=== PATIENT | female | born 1955 | race Caucasian/White ===

== ENCOUNTER → 2021-01-21 07:36 | Outpatient (CLI) | payer MEDICARE, MEDICAID, SELFPAY ==
[2021-01-21 14:18] LABS: Chloride 99 mmol/L (98-107); Potassium 4.8 mmoL/L (3.5-5.1); Sodium 132 mmol/L (136-145)
[2021-01-21 14:20] LABS: Alanine Aminotransferase 39 U/L (12-78); Alkaline Phosphatase 134 U/L (38-126); Aspartate Amino Transferase 33 U/L (14-36); Bilirubin,Total 0.6 mg/dl (0.2-1.3); Blood Urea Nitrogen 38 mg/dl (7-17); Estimated Glomerular Filt Rate 56 ml/min (>60); GFR (African American) 67 ML/MIN (>60)
[2021-01-21 14:21] LABS: Albumin Level 2.9 g/dl (3.5-5.0); Albumin/Globulin Ratio 1.1 (1.1-1.8); Anion Gap 6.8 mEq/L (5-15); Calcium 8.8 mg/dl (8.4-10.2); Carbon Dioxide 31 mmol/L (22.0-30.0); Chol/HDL Ratio 2.2 (1-3.5); Cholesterol 84 mg/dl (140-200); Globulin 2.7 g/dL (1.3-3.2); Glucose 313 mg/dl (74-100); HDL Cholesterol 39 mg/dl (40-60); Total Protein,Serum 5.6 g/dl (6.3-8.2); Triglycerides 83 mg/dl (30-150); VLDL Cholesterol 17 mg/dL (0-40)
[2021-01-21 14:35] LABS: Basophils % 0.5 % (0.1-2.0); Direct LDL Cholesterol < 30.00 mg/dL (100-129); Eosinophils # 0.3 K/mm3 (0.0-0.4); Eosinophils % 3.6 % (0.1-12.0); Hematocrit 37.7 % (37.0-47.0); Hemoglobin 12.5 g/dL (12.2-16.2); Lymphocytes % 25.4 % (10-50); Mean Corpuscular HGB Conc 33.1 g/dL (31.8-35.4); Mean Corpuscular Hemoglobin 29.7 pg (27.0-31.2); Mean Corpuscular Volume 89.8 fl (81-99); Mean Platelet Volume 9.1 fl (7.4-10.4); Monocytes # 0.6 K/mm3 (0.1-1.0); Monocytes % 7.3 % (1.7-9.3); Neutrophils # 4.9 K/mm3 (1.8-7.8); Neutrophils % 63.1 % (37.0-80.0); Platelet Count 119 K/mm3 (142-424); Red Cell Distribution Width 13.3 % (11.5-17.5); White Blood Count 7.8 K/mm3 (4.8-10.8)
[2021-01-21 14:52] LABS: Thyroid Stimulating Hormone 3.11 uIU/mL (0.465-4.68)
[2021-01-21 16:01] LABS: Hemoglobin A1C 9.8 % (4.0-6.0)
== END ==
PROVIDERS: Visit Provider Internal Medicine Adolescent Medicine
DX: E11.40 Type 2 diabetes mellitus with diabetic neuropathy, unspecified (principal); E03.9 Hypothyroidism, unspecified; E78.5 Hyperlipidemia, unspecified; I10 Essential (primary) hypertension; Z79.4 Long term (current) use of insulin
CPT/HCPCS: 36415; 80053; 80061; 83036; 84443; 85025

== ENCOUNTER → 2021-01-23 07:40 | Outpatient (CLI) | payer MEDICARE, MEDICAID, SELFPAY ==
[2021-01-23 13:44] LABS: Basophils # 0.1 K/mm3 (0-0.2); Basophils % 0.6 % (0.1-2.0); Eosinophils # 0.3 K/mm3 (0.0-0.4); Eosinophils % 1.9 % (0.1-12.0); Hematocrit 38.4 % (37.0-47.0); Hemoglobin 12.7 g/dL (12.2-16.2); Lymphocytes # 3.7 K/mm3 (0.7-4.5); Lymphocytes % 22.2 % (10-50); MANUAL DIFFERENTIAL MANUAL DIFFERENTIAL (MANUAL DIFF); Mean Corpuscular HGB Conc 33.1 g/dL (31.8-35.4); Mean Corpuscular Hemoglobin 29.6 pg (27.0-31.2); Mean Corpuscular Volume 89.3 fl (81-99); Mean Platelet Volume 8.9 fl (7.4-10.4); Monocytes # 0.9 K/mm3 (0.1-1.0); Monocytes % 5.2 % (1.7-9.3); Neutrophils # 11.7 K/mm3 (1.8-7.8); Neutrophils % 70.1 % (37.0-80.0); Platelet Count 170 K/mm3 (142-424); Red Cell Distribution Width 13.5 % (11.5-17.5); White Blood Count 16.6 K/mm3 (4.8-10.8)
[2021-01-23 13:53] LABS: Alanine Aminotransferase 36 U/L (12-78); Albumin Level 3.1 g/dl (3.5-5.0); Albumin/Globulin Ratio 1.1 (1.1-1.8); Alkaline Phosphatase 148 U/L (38-126); Anion Gap 8.5 mEq/L (5-15); Aspartate Amino Transferase 39 U/L (14-36); Bilirubin,Total 0.5 mg/dl (0.2-1.3); Blood Urea Nitrogen 47 mg/dl (7-17); Calcium 9.2 mg/dl (8.4-10.2); Carbon Dioxide 27 mmol/L (22.0-30.0); Chloride 100 mmol/L (98-107); Estimated Glomerular Filt Rate 50 ml/min (>60); GFR (African American) 60 ML/MIN (>60); Globulin 2.8 g/dL (1.3-3.2); Glucose 130 mg/dl (74-100); Potassium 4.5 mmoL/L (3.5-5.1); Sodium 131 mmol/L (136-145); Total Protein,Serum 5.9 g/dl (6.3-8.2)
[2021-01-23 14:49] LABS: INR 1.01 (0.9-1.1); Prothrombin Time 11.9 seconds (10.1-12.5)
[2021-01-23 14:51] LABS: Eosinophils % 1 % (0-3); Lymphocytes % 25 % (10-50); Monocytes % 8 % (2-9); Neutrophils % 66 % (42-76); Platelet Estimate Normal; RBC Morphology Normal; Total Cells Counted 100
[2021-01-25 08:59] LABS: HIV Screen 4th Generation wRfx Non Reactive (Non Reactive)
[2021-01-25 09:12] LABS: Hep B Core Ab, Total Negative (Negative); Hepatitis B Surface Antigen Negative (Negative)
[2021-01-25 17:14] LABS: AFP, Tumor Marker 7.7 ng/mL (0.0-8.3); Hep A Ab, IgM Negative (Negative); Hep B Surface Ab, Qual Non Reactive (.); Hepatitis C Antibody >11.0 s/co ratio (0.0-0.9)
== END ==
PROVIDERS: Visit Provider Internal Medicine Adolescent Medicine
DX: E11.40 Type 2 diabetes mellitus with diabetic neuropathy, unspecified (principal); K74.69 Other cirrhosis of liver; B17.10 Acute hepatitis C without hepatic coma; Z79.4 Long term (current) use of insulin; Z11.4 Encounter for screening for human immunodeficiency virus [HIV]
CPT/HCPCS: 36415; 80053; 82105; 85007; 85025; 85610; 86703; 86704; 86706; 86708; 87340; 87380; 87522; 87902; G0432

== ENCOUNTER → 2021-02-26 12:49 | Outpatient (CLI) | payer MEDICARE, MEDICAID, SELFPAY ==
[2021-02-26 13:39] LABS: Chloride 96 mmol/L (98-107); Sodium 135 mmol/L (136-145)
[2021-02-26 13:40] LABS: Potassium 4.6 mmoL/L (3.5-5.1)
[2021-02-26 13:42] LABS: Alanine Aminotransferase 19 U/L (12-78); Albumin Level 3.1 g/dl (3.5-5.0); Albumin/Globulin Ratio 1.2 (1.1-1.8); Alkaline Phosphatase 107 U/L (38-126); Anion Gap 10.6 mEq/L (5-15); Aspartate Amino Transferase 28 U/L (14-36); Bilirubin,Total 0.6 mg/dl (0.2-1.3); Blood Urea Nitrogen 46 mg/dl (7-17); Calcium 8.7 mg/dl (8.4-10.2); Carbon Dioxide 33 mmol/L (22.0-30.0); Estimated Glomerular Filt Rate 32 ml/min (>60); GFR (African American) 39 ML/MIN (>60); Globulin 2.6 g/dL (1.3-3.2); Glucose 167 mg/dl (74-100); Total Protein,Serum 5.7 g/dl (6.3-8.2)
[2021-02-26 14:01] LABS: INR 1.06 (0.9-1.1); Prothrombin Time 12.4 seconds (10.1-12.5)
== END ==
LOC: LAB.DROPOF 12:50 → HMH.JM 02-27 09:58
PROVIDERS: Visit Provider Internal Medicine Adolescent Medicine
DX: K76.89 Other specified diseases of liver (principal)
CPT/HCPCS: 80053; 85610; 87522

== ENCOUNTER → 2021-03-10 07:30 | Outpatient (CLI) | payer MEDICARE, MEDICAID, SELFPAY ==
[2021-03-10 14:28] LABS: Basophils % 0.5 % (0.1-2.0); Eosinophils # 0.3 K/mm3 (0.0-0.4); Hematocrit 36.8 % (37.0-47.0); Hemoglobin 12.5 g/dL (12.2-16.2); Lymphocytes # 2.3 K/mm3 (0.7-4.5); Lymphocytes % 29.8 % (10-50); Mean Corpuscular HGB Conc 34.1 g/dL (31.8-35.4); Mean Corpuscular Hemoglobin 29.9 pg (27.0-31.2); Mean Corpuscular Volume 87.9 fl (81-99); Mean Platelet Volume 9.2 fl (7.4-10.4); Monocytes # 0.5 K/mm3 (0.1-1.0); Monocytes % 6.5 % (1.7-9.3); Neutrophils # 4.6 K/mm3 (1.8-7.8); Neutrophils % 59.3 % (37.0-80.0); Platelet Count 113 K/mm3 (142-424); Red Blood Count 4.18 M/mm3 (4.20-5.40); Red Cell Distribution Width 13.1 % (11.5-17.5); White Blood Count 7.7 K/mm3 (4.8-10.8)
== END ==
PROVIDERS: Visit Provider Internal Medicine Adolescent Medicine
DX: E11.40 Type 2 diabetes mellitus with diabetic neuropathy, unspecified (principal); Z79.4 Long term (current) use of insulin
CPT/HCPCS: 36415; 85025

== ENCOUNTER → 2021-05-06 12:51 | Outpatient (CLI) | payer MEDICARE, MEDICAID, SELFPAY ==
[2021-05-06 13:22] LABS: Hematocrit 34.2 % (37.0-47.0); Hemoglobin 11.2 g/dL (12.2-16.2); Mean Corpuscular HGB Conc 32.6 g/dL (31.8-35.4); Mean Corpuscular Hemoglobin 29.8 pg (27.0-31.2); Mean Corpuscular Volume 91.3 fl (81-99); Platelet Count 152 K/mm3 (142-424); Red Blood Count 3.75 M/mm3 (4.20-5.40); Red Cell Distribution Width 16.6 % (11.5-17.5); White Blood Count 9.5 K/mm3 (4.8-10.8)
[2021-05-06 13:25] LABS: Prothrombin Time 13.1 seconds (10.1-12.5)
[2021-05-06 13:26] LABS: Chloride 97 mmol/L (98-107); Potassium 4.9 mmoL/L (3.5-5.1); Sodium 135 mmol/L (136-145)
[2021-05-06 13:29] LABS: Alanine Aminotransferase 26 U/L (12-78); Albumin Level 3.2 g/dl (3.5-5.0); Albumin/Globulin Ratio 1.1 (1.1-1.8); Alkaline Phosphatase 112 U/L (38-126); Anion Gap 12.9 mEq/L (5-15); Aspartate Amino Transferase 30 U/L (14-36); Bilirubin,Total 0.4 mg/dl (0.2-1.3); Blood Urea Nitrogen 54 mg/dl (7-17); Calcium 8.8 mg/dl (8.4-10.2); Carbon Dioxide 30 mmol/L (22.0-30.0); Estimated Glomerular Filt Rate 32 ml/min (>60); GFR (African American) 39 ML/MIN (>60); Globulin 2.8 g/dL (1.3-3.2); Glucose 188 mg/dl (74-100)
[2021-05-06 13:42] LABS: INR 1.12 (0.9-1.1)
== END ==
PROVIDERS: Visit Provider Internal Medicine Adolescent Medicine
DX: K74.60 Unspecified cirrhosis of liver (principal); B18.2 Chronic viral hepatitis C; Z11.59 Encounter for screening for other viral diseases; Z91.89 Other specified personal risk factors, not elsewhere classified
CPT/HCPCS: 36415; 80053; 85014; 85018; 85048; 85049; 85610; 87522

== ENCOUNTER → 2021-06-02 07:08 | Outpatient (CLI) | payer MEDICARE, MEDICAID, SELFPAY ==
[2021-06-02 14:24] LABS: Chloride 100 mmol/L (98-107); Potassium 4.8 mmoL/L (3.5-5.1); Sodium 135 mmol/L (136-145)
[2021-06-02 14:26] LABS: Alanine Aminotransferase 24 U/L (12-78); Alkaline Phosphatase 105 U/L (38-126); Aspartate Amino Transferase 25 U/L (14-36); Bilirubin,Total 0.3 mg/dl (0.2-1.3); Blood Urea Nitrogen 49 mg/dl (7-17); Estimated Glomerular Filt Rate 32 ml/min (>60); GFR (African American) 39 ML/MIN (>60)
[2021-06-02 14:27] LABS: Albumin Level 3.4 g/dl (3.5-5.0); Albumin/Globulin Ratio 1.3 (1.1-1.8); Anion Gap 14.8 mEq/L (5-15); Calcium 9.1 mg/dl (8.4-10.2); Carbon Dioxide 25 mmol/L (22.0-30.0); Chol/HDL Ratio 2.4 (1-3.5); Cholesterol 87 mg/dl (140-200); Globulin 2.6 g/dL (1.3-3.2); Glucose 88 mg/dl (74-100); HDL Cholesterol 37 mg/dl (40-60); Triglycerides 110 mg/dl (30-150); VLDL Cholesterol 22 mg/dL (0-40)
[2021-06-02 14:38] LABS: Direct LDL Cholesterol 32.13 mg/dL (100-129)
[2021-06-02 14:42] LABS: Basophils % 0.4 % (0.1-2.0); Eosinophils # 0.4 K/mm3 (0.0-0.4); Eosinophils % 4.6 % (0.1-12.0); Hemoglobin 11.7 g/dL (12.2-16.2); Lymphocytes # 1.8 K/mm3 (0.7-4.5); Lymphocytes % 21.3 % (10-50); Mean Corpuscular HGB Conc 32.4 g/dL (31.8-35.4); Mean Corpuscular Hemoglobin 30.1 pg (27.0-31.2); Mean Platelet Volume 10.1 fl (7.4-10.4); Monocytes # 0.7 K/mm3 (0.1-1.0); Monocytes % 7.6 % (1.7-9.3); Neutrophils # 5.6 K/mm3 (1.8-7.8); Platelet Count 164 K/mm3 (142-424); Red Blood Count 3.87 M/mm3 (4.20-5.40); Red Cell Distribution Width 13.2 % (11.5-17.5); White Blood Count 8.5 K/mm3 (4.8-10.8)
[2021-06-02 14:57] LABS: Thyroid Stimulating Hormone 3.67 uIU/mL (0.465-4.68)
[2021-06-02 19:04] LABS: Hemoglobin A1C 8.3 % (4.0-6.0)
== END ==
PROVIDERS: Visit Provider Nurse Practitioner Family
DX: E11.9 Type 2 diabetes mellitus without complications (principal); I48.91 Unspecified atrial fibrillation; Z79.4 Long term (current) use of insulin; Z79.899 Other long term (current) drug therapy
CPT/HCPCS: 36415; 80053; 80061; 83036; 84443; 85025

== ENCOUNTER → 2021-08-07 07:46 | Outpatient (CLI) | payer MEDICARE, MEDICAID, SELFPAY ==
[2021-08-07 15:49] LABS: Basophils # 0.2 K/mm3 (0-0.2); Basophils % 2.4 % (0.1-2.0); Eosinophils # 0.3 K/mm3 (0.0-0.4); Eosinophils % 3.3 % (0.1-12.0); Hematocrit 33.8 % (37.0-47.0); Lymphocytes % 24.3 % (10-50); Mean Corpuscular HGB Conc 32.5 g/dL (31.8-35.4); Mean Corpuscular Hemoglobin 29.5 pg (27.0-31.2); Mean Corpuscular Volume 90.9 fl (81-99); Mean Platelet Volume 10.1 fl (7.4-10.4); Monocytes # 0.8 K/mm3 (0.1-1.0); Monocytes % 9.3 % (1.7-9.3); Neutrophils % 60.7 % (37.0-80.0); Platelet Count 152 K/mm3 (142-424); Red Blood Count 3.72 M/mm3 (4.20-5.40); Red Cell Distribution Width 13.5 % (11.5-17.5); White Blood Count 8.3 K/mm3 (4.8-10.8)
[2021-08-07 15:55] LABS: Alanine Aminotransferase 20 U/L (12-78); Albumin/Globulin Ratio 1.2 (1.1-1.8); Alkaline Phosphatase 78 U/L (38-126); Anion Gap 15.9 mEq/L (5-15); Aspartate Amino Transferase 27 U/L (14-36); Bilirubin,Total 0.3 mg/dl (0.2-1.3); Calcium 8.6 mg/dl (8.4-10.2); Carbon Dioxide 25 mmol/L (22.0-30.0); Chloride 98 mmol/L (98-107); Estimated Glomerular Filt Rate 14 ml/min (>60); GFR (African American) 17 ML/MIN (>60); Globulin 2.6 g/dL (1.3-3.2); Glucose 89 mg/dl (74-100); Potassium 5.9 mmoL/L (3.5-5.1); Sodium 133 mmol/L (136-145); Total Protein,Serum 5.6 g/dl (6.3-8.2)
[2021-08-07 16:05] LABS: Blood Urea Nitrogen 112 mg/dl (7-17)
[2021-08-07 16:47] LABS: INR 1.21 (0.9-1.1); Prothrombin Time 13.5 seconds (10.1-12.5)
== END ==
PROVIDERS: Visit Provider Nurse Practitioner Family
DX: E11.9 Type 2 diabetes mellitus without complications (principal); I48.91 Unspecified atrial fibrillation; Z79.4 Long term (current) use of insulin; Z79.899 Other long term (current) drug therapy
CPT/HCPCS: 36415; 80053; 85025; 85610; 87522

== ENCOUNTER 2021-08-08 16:21 | Inpatient (IN) | payer MEDICAID, MEDICARE, SELFPAY ==
[2021-08-08] VITALS (7 sets, daily range): BP systolic 116–139; BP diastolic 59–82; PULSE 70–81; RESP 18–22; TEMP 36.7–36.8; O2SAT 95–98; BMI 49.8; BMI 47.2; BMI 40.8
--- NOTE | 2021-08-08 16:48 | HMH.EDGENADL ---
ED Disposition Clinical Impression: Dehydration, Acute kidney injury, Hyperkalemia Urinary tract infection Qualifiers: Urinary tract infection type: acute cystitis Hematuria presence: with hematuria Qualified Code(s): N30.01 - Acute cystitis with hematuria Disposition: Admitted as Observation Condition on Discharge: Serious Referrals: Provider,Referral, [Referring] - - Critical Care Critical Care Time: Yes Attestation: On , the high probability of a clinically significant, sudden or life threatening deterioration of the following system(s) required my full and direct attention, intervention and personal management. The time I documented below is in addition to time spent performing reported procedures but includes the following listed in this critical care notation. Total Critical Care Time: 40 Vital system(s) involved:: Metabolic Failure, Renal Failure My critical care processes included: Assessment & monitoring of V/S, Initial and Re-exams, Data Review/Interpretation, Coordinating Care, Medication Orders and management, Documentation Medical Decision Making - Medical Records Medical records reviewed: Yes: I reviewed the patient's medical records. MR Comment: Reviewed laboratory results performed here yesterday. Results of significant concern are BUN 112, creatinine 3.3, potassium 5.9. - Roly Inquiry Pt receiving controlled substance: No Vital Signs: 08/08/21 16:21 Temperature 98.2 F Temperature Source Oral Pulse Rate [Right Radial] 72 Respiratory Rate 18 Blood Pressure [Right Arm] 121/70 Blood Pressure Mean [Right Arm] 87 Blood Pressure Source [Right Arm] Automatic Cuff Blood Pressure Position [Right Arm] Sitting 02 Sat by Pulse Oximetry 97 Oxygen Delivery Method Room Air - Lab Data Lab Results 08/08/21 17:06: WBC 7.1, RBC 3.81 L, Hgb 11.4 L, Hct 35.0 L, MCV 91.7, MCH 30.0, MCHC 32.7, RDW 13.2, Plt Count 127 L, MPV 9.8, Neut % (Auto) 66.9, Lymph % (Auto) 21.3, Saline % (Auto) 7.3, Eos % (Auto) 3.7, Baso % (Auto) 0.8, Neut # (Auto) 4.7, Lymph # (Auto) 1.5, Saline # (Auto) 0.5, Eos # (Auto) 0.3, Baso # (Auto) 0.1 08/08/21 17:06: Sodium 132 L, Potassium 6.2 H*, Chloride 101, Carbon Dioxide 22, Anion Gap 15.2 H, BUN 100 H, Creatinine 2.60 H D, Estimated Creat Clear 18, Estimated GFR 18 L*, Est GFR ( Amer) 22 L D, Glucose 220 H, Calcium 8.4, Magnesium 1.7, Total Bilirubin 0.4, AST 34 D, ALT 24, Alkaline Phosphatase 89, Total Protein 6.2 L, Albumin 3.3 L, Globulin 2.9, Albumin/Globulin Ratio 1.1 08/08/21 17:06: Lipase 99 08/08/21 18:03: Urine Color Yellow, Urine Appearance Sl cloudy, Urine pH 5.5, Ur Specific [place] 1.020, Urine Protein Negative, Urine Glucose (UA) Trace, Urine Ketones Negative, Urine Blood 2+, Urine Nitrate Negative, Urine Bilirubin Negative, Urine Urobilinogen 0.2, Ur Leukocyte Esterase 1+ A, Urine RBC 10-20, Urine WBC 5-10, Ur Squamous Epith Cells 3-5, Urine Bacteria 2+ Result diagrams: 08/08/21 17:06 08/08/21 17:06 Orders (Tests/Meds): ED MEDICATIONS Discontinued Medications Generic Name Dose Route Start Last Admin Trade Name Freq PRN Reason Stop Dose Admin Sodium Chloride 1,000 ml 08/08/21 17:00 08/08/21 18:38 Sodium Chloride 0.9% 1000ml Bag IV 08/08/21 17:01 1,000 ml BOLUS ONE Administration Sodium Polystyrene Sulfonate 15 gm 08/08/21 17:35 Sodium Poly Sulfon 15gm/60ml Oral.Susp PO 08/08/21 17:36 ONCE ONE ORDERS Category Date Time Status Lactic Acid Stat Lab 08/08/21 17:01 Ordered Rapid PCR Covid and Flu A/B Stat Lab 08/08/21 18:38 Received Blood Culture Stat Micro 08/08/21 17:01 Ordered Urine Culture Stat Micro 08/08/21 18:03 Received - Radiology Data #1 Image(s): Chest Image Reviewed: Yes I reviewed the patient's radiology image, Yes I have reviewed radiologist's interpretation PROCEDURE INFORMATION: Exam: XR Chest Exam date and time: 08/08/2021 5:00 PM Age: 66 years old Clinical indication: Cough and shortn
--- NOTE | 2021-08-08 17:00 | XR_ITS ---
PROCEDURE INFORMATION: Exam: XR Chest Exam date and time: 08/08/2021 5:00 PM Age: 66 years old Clinical indication: Cough and shortness of breath; Prior surgery TECHNIQUE: Imaging protocol: XR of the chest. Views: 1 view. COMPARISON: No relevant prior studies available. FINDINGS: Tubes, catheters and devices: Three lead pacer noted. Lungs: Unremarkable. No consolidation. Pleural spaces: Unremarkable. No pleural effusion. No pneumothorax. Heart/Mediastinum: Mitral annular calcifications are seen. Bones/joints: Right asymmetric scoliosis. IMPRESSION: No acute disease
[2021-08-08 17:18] LABS: Basophils # 0.1 K/mm3 (0-0.2); Basophils % 0.8 % (0.1-2.0); Eosinophils # 0.3 K/mm3 (0.0-0.4); Eosinophils % 3.7 % (0.1-12.0); Hemoglobin 11.4 g/dL (12.2-16.2); Lymphocytes # 1.5 K/mm3 (0.7-4.5); Lymphocytes % 21.3 % (10-50); Mean Corpuscular HGB Conc 32.7 g/dL (31.8-35.4); Mean Corpuscular Volume 91.7 fl (81-99); Mean Platelet Volume 9.8 fl (7.4-10.4); Monocytes # 0.5 K/mm3 (0.1-1.0); Monocytes % 7.3 % (1.7-9.3); Neutrophils # 4.7 K/mm3 (1.8-7.8); Neutrophils % 66.9 % (37.0-80.0); Platelet Count 127 K/mm3 (142-424); Red Blood Count 3.81 M/mm3 (4.20-5.40); Red Cell Distribution Width 13.2 % (11.5-17.5); White Blood Count 7.1 K/mm3 (4.8-10.8)
[2021-08-08 17:27] LABS: Alanine Aminotransferase 24 U/L (12-78); Albumin Level 3.3 g/dl (3.5-5.0); Albumin/Globulin Ratio 1.1 (1.1-1.8); Alkaline Phosphatase 89 U/L (38-126); Anion Gap 15.2 mEq/L (5-15); Aspartate Amino Transferase 34 U/L (14-36); Bilirubin,Total 0.4 mg/dl (0.2-1.3); Calcium 8.4 mg/dl (8.4-10.2); Carbon Dioxide 22 mmol/L (22.0-30.0); Chloride 101 mmol/L (98-107); Creatinine Clearance Estimated 18 mL/min (50-200); Estimated Glomerular Filt Rate 18 ml/min (>60); GFR (African American) 22 ML/MIN (>60); Globulin 2.9 g/dL (1.3-3.2); Glucose 220 mg/dl (74-100); Lipase 99 U/L (23-300); Magnesium 1.7 mg/dl (1.6-2.3); Sodium 132 mmol/L (136-145); Total Protein,Serum 6.2 g/dl (6.3-8.2)
[2021-08-08 17:34] LABS: Blood Urea Nitrogen 100 mg/dl (7-17); Potassium 6.2 mmoL/L (3.5-5.1)
--- NOTE | 2021-08-08 17:34 | PC.NURSE ---
critical potassium and BUN called per lab, notified ER of critical values
--- NOTE | 2021-08-08 17:47 | ECG_ITS ---
APPROVED REPORT Exam: Resting ECG HR:76 bpm ECG Measurements Heart Rate 76 AXES WV 142 P 67 QRSd 122 QRS 223 QT 422 T -15 QTc 474 Conclusion Electronic ventricular pacemaker Electronically signed by : Carlos Cortez MD 08/09/2021 10:55:14
[2021-08-08 18:10] LABS: Microscopic, Urine URINE MICROSCOPIC (MICROSCOPIC)
[2021-08-08 18:12] LABS: Appearance,Urine SL CLOUDY (Clear); Bilirubin,Urine Negative (Negative); Blood, Urine 2+ (Negative); Color,Urine YELLOW (Yellow); Glucose,Urine (UA) TRACE (Negative); Ketones,Urine Negative (Negative); Leukocyte Esterase,Urine 1+ (Negative); Nitrate,Urine Negative (Negative); PH,Urine 5.5 (5.0-8.5); Protein,Urine Negative (Negative); Urobilinogen,Urine 0.2 EU/dl (0.2)
--- NOTE | 2021-08-08 18:20 | PC.NURSE ---
straight cath done per ER MD order when changing pt depends, pt is raw in stoney buttocks area. Depends changed, pt had some stool on her, pt cleaned as genlty as possible r/t pt states she is painful. Barrier cream applied.
--- NOTE | 2021-08-08 18:37 | PC.NURSE ---
notified supervisor cook house of admission
[2021-08-08 18:44] LABS: Bacteria,Urine 2+ /lpf
[2021-08-08 18:45] LABS: Coronavirus 19, PCR Not Detected (NotDetected); Influenza A, PCR Not Detected (NotDetected); Influenza B, PCR Not Detected (NotDetected)
[2021-08-08 20:13] LABS: Lactic Acid 1.3 mmol/L (0.7-2.1)
--- NOTE | 2021-08-08 21:24 | PC.NURSE ---
PT ARRIVED TO FLOOR VIA STRETCHER FROM ED W/STAFF AT 2123
[2021-08-08 23:15] LABS: POC Glucose,Bedside 160 (70-110)
[2021-08-09] VITALS (8 sets, daily range): BP systolic 112–137; BP diastolic 53–68; PULSE 80–100; RESP 16; TEMP 36.7–36.9; O2SAT 95–97; BMI 45.9
--- NOTE | 2021-08-09 07:33 | HMH.HP ---
*Admission Date: 08/09/21 *Chief complaint: weakness *History of present illness: 66-year-old female who resides [facility], was brought in by ambulance due to abnormal labs. Denies any acute symptoms but just feels blah . Labs were concerning for elevated potassium, acute kidney injury, and mild dehydration. On work-up in the ER, she states that she has had a cough. Her breathing does not feel any different than normal. Denies abdominal pain, vomiting, diarrhea. States that she is eating normally but not drinking enough . Denies any knowledge of fever. Denies any problems urinating. Denies chest pain. Admitted to medicine for KALLI and possible UTI. On exam this morning, give similar history of no significant symptoms just feeling ill. Labs this morning reviewed, slight improvement in creatinine. Baseline creatinine of 1.6. Potassium still somewhat elevated. Has been receiving IV fluids overnight. [facility] History I have reviewed the patient's past medical history: Yes Medical History: Reports:: Atherosclerotic Heart Disease, Atrial Fibrillation, Cardiomyopathy, Congestive Heart Failure, Coronary Artery Disease, Diabetes Mellitus Type 2, Home Oxygen, Hyperlipidemia, Hypertension, Internal Pacemaker, Myocardial Infarction, Peripheral Vascular Disease Denies:: Cancer, Diabetes Mellitus Type 1, MRSA *Have you ever received a pneumonia vaccine?: Yes *Have you received a flu vaccine this season?: No Other Medical History: Reports: Arthritis (osteoarthritis), Hypothyroidism, Liver Disease, Sinus Problems, Thyroid Disease Other Surgeries: Yes: Cardiac Catheterization, Cardiac Surgery, Pacemaker Amputation: Yes (left toes) Fractures: No - *Social History Smoking Status: Former smoker Tobacco Type: cigarettes # Packs/Day (cigarettes): 1 #Yrs smoked (if former smoker): 20 Alcohol Intake: never Substance Use Type: denies use *Occupational Status:: disabled Housing: assisted living facility *Travel in the last 8 weeks: None Family Hx:: No significant family history Review of Systems - Review of Systems Review of systems:: pertinent systems reviewed and negative unless documented below (14 point review of systems performed, pertinent positives and negatives as per HPI) - *Neurologic Denies headache(s) Meds Home Medications Medication Instructions Recorded Confirmed Type apixaban 5 mg tablet 5 mg PO BID 10/26/19 08/09/21 History aspirin 81 mg tablet,delayed 81 mg PO DAILY 10/26/19 08/09/21 History release bumetanide 1 mg tablet 1.5 mg PO DAILY 10/26/19 08/09/21 History escitalopram oxalate 10 mg tablet 5 mg PO DAILY 10/26/19 08/08/21 History levothyroxine 25 mcg tablet 25 mcg PO DAILY 10/26/19 08/09/21 History lisinopril 5 mg tablet 5 mg PO DAILY 10/26/19 08/09/21 History potassium chloride 20 mEq 20 meq PO DAILY 10/26/19 08/09/21 History tablet,extended release Budesonide/Formoterol Fumarate 1 inh INHALATION BID 08/08/21 08/09/21 History [Symbicort 160-4.5 Mcg Inhaler] Insulin Degludec [Tresiba 55 units SQ HS 08/08/21 08/09/21 History Flextouch U-100] Insulin Regular, Human [Novolin R] 0 units SQ ACHS 08/08/21 08/09/21 History Ipratropium/Albuterol Sulfate 3 ml IH Q4H PRN 08/08/21 08/09/21 History [Iprat-Albut 0.5-3(2.5) mg/3 ml] Metoprolol Succinate 100 mg PO DAILY 08/08/21 08/09/21 History Montelukast Sodium 10 mg PO HS 08/08/21 08/09/21 History Spironolactone [Spironolactone 25 mg PO DAILY 08/08/21 08/09/21 History 25mg Tablet] Azelastine HCl 6 ml OP BID 08/09/21 08/09/21 History Escitalopram Oxalate [Lexapro] 5 mg PO DAILY 08/09/21 08/09/21 History Fluticasone Propionate [Flonase 1 spr NS BID 08/09/21 08/09/21 History 50mcg nasal spray 16gm] Rosuvastatin Calcium [Crestor 10mg 10 mg PO HS 08/09/21 08/09/21 History Tablets] Allergies Allergy/AdvReac Type Severity Reaction Status Date / Time No Known Allergies Allergy Verified 11/17/19 11:43 Exam
--- NOTE | 2021-08-09 09:15 | PC.NURSE ---
notified of pt hypotension and held metoprolol
[2021-08-09 09:18] LABS: Basophils # 0.1 K/mm3 (0-0.2); Basophils % 0.7 % (0.1-2.0); Eosinophils # 0.3 K/mm3 (0.0-0.4); Eosinophils % 3.2 % (0.1-12.0); Hematocrit 37.1 % (37.0-47.0); Hemoglobin 11.9 g/dL (12.2-16.2); Lymphocytes # 1.5 K/mm3 (0.7-4.5); Lymphocytes % 17.8 % (10-50); Mean Corpuscular Hemoglobin 29.3 pg (27.0-31.2); Mean Corpuscular Volume 91.6 fl (81-99); Mean Platelet Volume 10.5 fl (7.4-10.4); Monocytes # 0.7 K/mm3 (0.1-1.0); Monocytes % 7.9 % (1.7-9.3); Neutrophils # 5.8 K/mm3 (1.8-7.8); Neutrophils % 70.5 % (37.0-80.0); Platelet Count 138 K/mm3 (142-424); Red Blood Count 4.05 M/mm3 (4.20-5.40); Red Cell Distribution Width 13.7 % (11.5-17.5); White Blood Count 8.3 K/mm3 (4.8-10.8)
[2021-08-09 09:20] LABS: Anion Gap 15.4 mEq/L (5-15); Blood Urea Nitrogen 77 mg/dl (7-17); Calcium 8.4 mg/dl (8.4-10.2); Carbon Dioxide 19 mmol/L (22.0-30.0); Chloride 109 mmol/L (98-107); Creatinine Clearance Estimated 24 mL/min (50-200); Estimated Glomerular Filt Rate 25 ml/min (>60); GFR (African American) 30 ML/MIN (>60); Glucose 146 mg/dl (74-100); Potassium 5.4 mmoL/L (3.5-5.1); Sodium 138 mmol/L (136-145)
--- NOTE | 2021-08-09 11:15 | P.CONPHA_ITS ---
[facility] Pharmacy VTE Monitoring - Patient Demographics Admission date: 08/08/21 Report Date: 08/09/21 Time: 11:15 Allergies/Adverse Reactions: Patient Allergies No Known Allergies Allergy (Verified 11/17/19 11:43) Height: 1.63 m Weight: 122.016 kg Patient Problems: Current Active Problems Dehydration (Acute) Acute kidney injury (Acute) Hyperkalemia (Acute) Urinary tract infection (Acute) - VTE Risk Labs: VTE Related Lab Results Hgb 11.9 g/dL (12.2-16.2) L 08/09/21 08:02 Hct 37.1 % (37.0-47.0) 08/09/21 08:02 Plt Count 138 K/mm3 (142-424) L 08/09/21 08:02 BUN 77 mg/dl (7-17) H 08/09/21 08:02 Creatinine 2.00 mg/dl (0.52-1.04) H D 08/09/21 08:02 Estimated Creat Clear 24 mL/min (50-200) 08/09/21 08:02 VTE Score: 4 VTE Risk Level: Low Risk - Prophylaxis VTE Prophylaxis Ordered?: Yes Types of VTE Prophylaxis: TEDS Knee High, Pharmacological Location of Applied Device: Bilateral Lower Extremeties Pharmacologic Type: Other (ELIQUIS)
--- NOTE | 2021-08-09 13:31 | HMH.PHAINT ---
MEDICATION RECONCILIATION COMPLETED ON PATIENT USING MAR FROM ALF. -BRITTNEE VERGARA, KAMD
[2021-08-09 17:53] LABS: POC Glucose,Bedside 132 (70-110)
[2021-08-09 17:53] LABS: POC Glucose,Bedside 119 (70-110)
[2021-08-09 19:05] LABS: Anion Gap 14.2 mEq/L (5-15); Blood Urea Nitrogen 61 mg/dl (7-17); Calcium 7.9 mg/dl (8.4-10.2); Carbon Dioxide 18 mmol/L (22.0-30.0); Chloride 110 mmol/L (98-107); Creatinine Clearance Estimated 28 mL/min (50-200); Estimated Glomerular Filt Rate 30 ml/min (>60); GFR (African American) 36 ML/MIN (>60); Glucose 167 mg/dl (74-100); Potassium 5.2 mmoL/L (3.5-5.1); Sodium 137 mmol/L (136-145)
[2021-08-10] VITALS: BP 107/68; PULSE 100; PULSE 88; RESP 20; TEMP 37.3; O2SAT 92
[2021-08-10 04:00] VITALS: BP 128/83; PULSE 116; PULSE 90; RESP 24; TEMP 36.7; O2SAT 95
[2021-08-10 05:00] VITALS: BMI 46.4
--- NOTE | 2021-08-10 05:29 | PC.NURSE ---
no complaints through the night, pt slept most of the night
[2021-08-10 06:40] LABS: POC Glucose,Bedside 88 (70-110)
--- NOTE | 2021-08-10 07:33 | HMH.DCSUM ---
General - General Admission date:: 08/08/21 Discharge date: 08/10/21 HPI HPI: 66-year-old female who resides [facility], was brought in by ambulance due to abnormal labs. Denies any acute symptoms but just feels blah . Labs were concerning for elevated potassium, acute kidney injury, and mild dehydration. On work-up in the ER, she states that she has had a cough. Her breathing does not feel any different than normal. Denies abdominal pain, vomiting, diarrhea. States that she is eating normally but not drinking enough . Denies any knowledge of fever. Denies any problems urinating. Denies chest pain. Admitted to medicine for KALLI and possible UTI. On exam this morning, give similar history of no significant symptoms just feeling ill. Labs this morning reviewed, slight improvement in creatinine. Baseline creatinine of 1.6. Potassium still somewhat elevated. Has been receiving IV fluids overnight. Hospital Course Hospital Course: 66 yo F, resident of [facility], presents with KALLI, UTI, Hyperkalemia -Initiated on empiric antibiotics for UTI. Urine culture still pending at time of discharge, will finish empiric course with Omnicef orally for total of 5 days of therapy. -Kidney function and electrolytes improving with IV fluids. Creatinine back to baseline. Potassium still slightly elevated but improving. Will hold oral potassium supplementation that she is normally on in the outpatient setting. Would benefit from repeat labs this coming week, recommend labs Wednesday or Wednesday pending routine lab schedule at the alf. -Noted to have increasing heart rate on day of discharge, suspect secondary to holding metoprolol during admission because of low blood pressure. Resumed morning of discharge. Suspect A. fib control will improve with resumption of medications. Continue home medications for chronic conditions unless otherwise noted in medication reconciliation. Examined on day of discharge. Medically stable for discharge back to alf Objective Vital signs: Temp Pulse Resp BP Pulse Ox 98.0 F 116 H 24 128/83 95 08/10/21 04:00 08/10/21 04:00 08/10/21 04:00 08/10/21 04:00 08/10/21 04:00 no acute distress, morbidly obese - *Routine HEENT Exam Head: Present: normocephalic Eye: Present: EOMI, PERRL ENT: Present: mucous membranes moist - *Routine Neck Exam Present: supple - *Routine Respiratory Exam Present: CTA bilaterally - *Routine Cardiovascular Exam Present: irregularly irregular. Absent: murmur - *Routine Abdominal Exam Present: soft, normoactive bowel sounds, tenderness (diffuse, non-focal) - *Routine Extremities Exam Absent: cyanosis, clubbing, edema Comments: Chronic stasis changes of shins, bilateral legs tender on exam (baseline), well-healed chronic amputation of left forefoot. - *Routine Skin Exam Present: warm. Absent: rash - Detailed Eye Exam Eyelids: Bilateral normal inspection Results Labs on day of discharge: Labs from last 24 hours 08/10/21 08/09/21 08/09/21 05:52 18:45 16:52 WBC RBC Hgb Hct MCV MCH MCHC RDW Plt Count MPV Neut % (Auto) Lymph % (Auto) [place] % (Auto) Eos % (Auto) Baso % (Auto) Neut # (Auto) Lymph # (Auto) [place] # (Auto) Eos # (Auto) Baso # (Auto) Sodium 137 Potassium 5.2 H Chloride 110 H Carbon Dioxide 18 L Anion Gap 14.2 BUN 61 H Creatinine 1.70 H Estimated Creat Clear 28 Estimated GFR 30 L Est GFR ( Amer) 36 L Glucose 167 H POC Glucose 88 132 H Calcium 7.9 L 08/09/21 08/09/21 08/09/21 10:54 08:02 08:02 WBC 8.3 RBC 4.05 L Hgb 11.9 L Hct 37.1 MCV 91.6 MCH 29.3 MCHC 32.0 RDW 13.7 Plt Count 138 L MPV 10.5 H Neut % (Auto) 70.5 Lymph % (Auto) 17.8 [place] % (Auto) 7.9 Eos % (Auto) 3.2 Baso % (Auto) 0.7 Neut # (Aut
[2021-08-10 07:35] VITALS: BP 140/82; PULSE 110; RESP 18; TEMP 36.9; O2SAT 96
[2021-08-10 10:32] LABS: Basophils % 0.6 % (0.1-2.0); Eosinophils # 0.3 K/mm3 (0.0-0.4); Eosinophils % 4.1 % (0.1-12.0); Hematocrit 34.3 % (37.0-47.0); Hemoglobin 11.2 g/dL (12.2-16.2); Lymphocytes # 1.3 K/mm3 (0.7-4.5); Lymphocytes % 21.2 % (10-50); Mean Corpuscular HGB Conc 32.5 g/dL (31.8-35.4); Mean Corpuscular Hemoglobin 30.1 pg (27.0-31.2); Mean Corpuscular Volume 92.6 fl (81-99); Mean Platelet Volume 10.6 fl (7.4-10.4); Monocytes # 0.5 K/mm3 (0.1-1.0); Monocytes % 7.9 % (1.7-9.3); Neutrophils % 66.2 % (37.0-80.0); Platelet Count 109 K/mm3 (142-424); Red Cell Distribution Width 13.7 % (11.5-17.5); White Blood Count 6.1 K/mm3 (4.8-10.8)
[2021-08-10 10:39] LABS: Chloride 114 mmol/L (98-107); Sodium 143 mmol/L (136-145)
--- NOTE | 2021-08-10 10:41 | PC.NURSE ---
Report called to [facility]. EMS contacted to transport pt. Saline lock removed from left breast. site is intact. pt tolerated well. Pt denies any pain, soa. Telemetry discontinued.
[2021-08-10 10:42] LABS: Alanine Aminotransferase 23 U/L (12-78); Albumin Level 3.2 g/dl (3.5-5.0); Albumin/Globulin Ratio 1.2 (1.1-1.8); Alkaline Phosphatase 82 U/L (38-126); Aspartate Amino Transferase 32 U/L (14-36); Bilirubin,Total 0.5 mg/dl (0.2-1.3); Blood Urea Nitrogen 52 mg/dl (7-17); Creatinine Clearance Estimated 32 mL/min (50-200); Estimated Glomerular Filt Rate 35 ml/min (>60); GFR (African American) 42 ML/MIN (>60); Globulin 2.7 g/dL (1.3-3.2); Glucose 150 mg/dl (74-100); Total Protein,Serum 5.9 g/dl (6.3-8.2)
[2021-08-10 10:43] LABS: Magnesium 1.5 mg/dl (1.6-2.3)
--- NOTE | 2021-08-10 10:46 | PC.NURSE ---
report called to [facility]
[2021-08-10 11:16] LABS: Anion Gap 19.1 mEq/L (5-15); Carbon Dioxide 16 mmol/L (22.0-30.0)
[2021-08-10 11:18] LABS: Potassium 6.1 mmoL/L (3.5-5.1)
--- NOTE | 2021-08-10 11:34 | PC.NURSE ---
spoke with MD regarding pts critical potassium. nno
== END 2021-08-10 11:10 | DRG 683 ==
LOC: ER 19:09 → 2ND 20:47
PROVIDERS: Admitting Provider Internal Medicine Adolescent Medicine; Emergency Provider Emergency Medicine; PCP Nurse Practitioner Family; Visit Provider Internal Medicine Adolescent Medicine
DX: N17.9 Acute kidney failure, unspecified (principal); N39.0 Urinary tract infection, site not specified; I48.20 Chronic atrial fibrillation, unspecified; Z68.42 Body mass index [BMI] 45.0-49.9, adult; E86.0 Dehydration; E87.5 Hyperkalemia; E11.51 Type 2 diabetes mellitus with diabetic peripheral angiopathy without gangrene; I10 Essential (primary) hypertension; I25.2 Old myocardial infarction; E03.9 Hypothyroidism, unspecified; E66.01 Morbid (severe) obesity due to excess calories; Z87.891 Personal history of nicotine dependence; Z99.81 Dependence on supplemental oxygen; I25.10 Atherosclerotic heart disease of native coronary artery without angina pectoris; Z79.4 Long term (current) use of insulin
CPT/HCPCS: 71045; 80048; 80053; 81001; 82962; 83605; 83690; 83735; 85025; 87040; 87086; 93005; 96365; 96375; 99284; C9803; U0003; U0005

== ENCOUNTER → 2021-08-12 06:51 | Outpatient (CLI) | payer MEDICARE, MEDICAID, SELFPAY ==
[2021-08-12 14:18] LABS: Basophils % 0.4 % (0.1-2.0); Eosinophils # 0.2 K/mm3 (0.0-0.4); Eosinophils % 2.9 % (0.1-12.0); Hematocrit 32.9 % (37.0-47.0); Hemoglobin 10.4 g/dL (12.2-16.2); Lymphocytes # 1.3 K/mm3 (0.7-4.5); Lymphocytes % 18.8 % (10-50); Mean Corpuscular HGB Conc 31.5 g/dL (31.8-35.4); Mean Corpuscular Hemoglobin 29.4 pg (27.0-31.2); Mean Corpuscular Volume 93.3 fl (81-99); Mean Platelet Volume 9.8 fl (7.4-10.4); Monocytes # 0.6 K/mm3 (0.1-1.0); Monocytes % 8.1 % (1.7-9.3); Neutrophils % 69.9 % (37.0-80.0); Platelet Count 112 K/mm3 (142-424); Red Blood Count 3.53 M/mm3 (4.20-5.40); Red Cell Distribution Width 13.5 % (11.5-17.5); White Blood Count 7.1 K/mm3 (4.8-10.8)
[2021-08-12 14:24] LABS: Alanine Aminotransferase 22 U/L (12-78); Albumin Level 2.6 g/dl (3.5-5.0); Alkaline Phosphatase 76 U/L (38-126); Anion Gap 10.4 mEq/L (5-15); Aspartate Amino Transferase 30 U/L (14-36); Bilirubin,Total 0.2 mg/dl (0.2-1.3); Blood Urea Nitrogen 31 mg/dl (7-17); Calcium 8.6 mg/dl (8.4-10.2); Carbon Dioxide 25 mmol/L (22.0-30.0); Chloride 108 mmol/L (98-107); Estimated Glomerular Filt Rate 45 ml/min (>60); GFR (African American) 54 ML/MIN (>60); Globulin 2.7 g/dL (1.3-3.2); Glucose 76 mg/dl (74-100); Potassium 4.4 mmoL/L (3.5-5.1); Sodium 139 mmol/L (136-145); Total Protein,Serum 5.3 g/dl (6.3-8.2)
== END ==
PROVIDERS: Visit Provider Nurse Practitioner Family
DX: E11.9 Type 2 diabetes mellitus without complications (principal); Z79.4 Long term (current) use of insulin
CPT/HCPCS: 36415; 80053; 85025

== ENCOUNTER 2021-08-23 09:45 | Inpatient (IN) | payer MEDICAID, MEDICARE, SELFPAY ==
[2021-08-23] VITALS (39 sets, daily range): BP systolic 104–189; BP diastolic 55–161; PULSE 60–90; RESP 16–48; TEMP 36.4–38.4; O2SAT 92–100; BMI 43.7; BMI 44.2
--- NOTE | 2021-08-23 09:43 | ECG_ITS ---
APPROVED REPORT Exam: Resting ECG HR:89 bpm ECG Measurements Heart Rate 89 AXES [place] 148 P 83 QRSd 118 QRS 258 QT 396 T 35 QTc 481 Conclusion Demand pacemaker, interpretation is based on intrinsic rhythm Sinus rhythm with fusion complexes Right bundle branch block Anterolateral infarct, age undetermined Abnormal ECG Electronically signed by : Carlos Cortez MD 08/23/2021 19:26:50
--- NOTE | 2021-08-23 09:50 | PC.NURSE ---
RESP CALLED TO PLACE PT ON BIPAP
--- NOTE | 2021-08-23 09:55 | PC.NURSE ---
RESP AT BEDSIDE
--- NOTE | 2021-08-23 09:55 | XR_ITS ---
PROCEDURE INFORMATION: Exam: XR Chest Exam date and time: 08/23/2021 9:55 AM Age: 66 years old Clinical indication: Shortness of breath; Additional info: Severe SOB TECHNIQUE: Imaging protocol: XR of the chest. Views: 1 view. COMPARISON: CR XR CHEST PORTABLE 08/08/2021 5:11 PM FINDINGS: Tubes, catheters and devices: Cardiac rhythm maintenance device is in place. Lungs: Interstitial pulmonary edema. Patchy bilateral airspace opacities. Pleural spaces: Probable trace bilateral pleural effusions. No pneumothorax. Heart/Mediastinum: Unremarkable. No cardiomegaly. Bones/joints: Unremarkable. IMPRESSION: 1. Interstitial pulmonary edema with probable trace bilateral pleural effusions. 2. Patchy bilateral airspace opacities may reflect some combination of alveolar edema or pneumonia.
[2021-08-23 10:22] LABS: Basophils # 0.1 K/mm3 (0-0.2); Basophils % 0.6 % (0.1-2.0); Eosinophils # 0.3 K/mm3 (0.0-0.4); Eosinophils % 2.3 % (0.1-12.0); Hematocrit 32.8 % (37.0-47.0); Lymphocytes # 1.2 K/mm3 (0.7-4.5); Lymphocytes % 10.4 % (10-50); Mean Corpuscular HGB Conc 33.7 g/dL (31.8-35.4); Mean Corpuscular Hemoglobin 30.4 pg (27.0-31.2); Mean Corpuscular Volume 90.2 fl (81-99); Mean Platelet Volume 9.2 fl (7.4-10.4); Monocytes # 0.8 K/mm3 (0.1-1.0); Monocytes % 6.5 % (1.7-9.3); Neutrophils # 9.1 K/mm3 (1.8-7.8); Neutrophils % 80.2 % (37.0-80.0); Platelet Count 118 K/mm3 (142-424); Red Blood Count 3.63 M/mm3 (4.20-5.40); White Blood Count 11.4 K/mm3 (4.8-10.8)
[2021-08-23 10:27] LABS: Coronavirus 19, PCR Not Detected (NotDetected); Influenza A, PCR Not Detected (NotDetected); Influenza B, PCR Not Detected (NotDetected)
[2021-08-23 10:27] LABS: VBG Base Excess 1.7 mmol/L (-2.4-2.3); VBG HCO3 27.4 mmol/L (23-30); VBG Oxygen Saturation 96.4 % (50-70); VBG PH 7.35 mmol/L (7.31-7.41); VBG PO2 88.9 mmol/L (28-40)
[2021-08-23 10:27] LABS: Appearance,Urine CLEAR (Clear); Bilirubin,Urine Negative (Negative); Blood, Urine 1+ (Negative); Color,Urine YELLOW (Yellow); Glucose,Urine (UA) Negative (Negative); Ketones,Urine Negative (Negative); Leukocyte Esterase,Urine 1+ (Negative); Microscopic, Urine URINE MICROSCOPIC (MICROSCOPIC); Nitrate,Urine Negative (Negative); Protein,Urine 2+ (Negative); Specific Gravity, Urine 1.025 (1.005-1.030); Urobilinogen,Urine 0.2 EU/dl (0.2)
[2021-08-23 10:28] LABS: Chloride 104 mmol/L (98-107); Sodium 139 mmol/L (136-145)
[2021-08-23 10:29] LABS: Potassium 4.1 mmoL/L (3.5-5.1)
[2021-08-23 10:30] LABS: VBG PCO2 51.2 mmol/L (35-51)
[2021-08-23 10:31] LABS: Alanine Aminotransferase 36 U/L (12-78); Alkaline Phosphatase 125 U/L (38-126); Anion Gap 10.1 mEq/L (5-15); Aspartate Amino Transferase 33 U/L (14-36); Bilirubin,Total 0.7 mg/dl (0.2-1.3); Blood Urea Nitrogen 19 mg/dl (7-17); Carbon Dioxide 29 mmol/L (22.0-30.0); Creatinine Clearance Estimated 48 mL/min (50-200); Estimated Glomerular Filt Rate 55 ml/min (>60); GFR (African American) 67 ML/MIN (>60); Lactic Acid 1.1 mmol/L (0.7-2.1)
[2021-08-23 10:32] LABS: Albumin Level 3.5 g/dl (3.5-5.0); Albumin/Globulin Ratio 1.1 (1.1-1.8); Calcium 8.7 mg/dl (8.4-10.2); Globulin 3.1 g/dL (1.3-3.2); Glucose 187 mg/dl (74-100); Magnesium 1.4 mg/dl (1.6-2.3); Total Protein,Serum 6.6 g/dl (6.3-8.2)
[2021-08-23 10:41] LABS: NT Pro Brain Natriuretic Pep. 2020 pg/mL (0-125)
--- NOTE | 2021-08-23 10:42 | HMH.EDGENADL ---
ED Disposition Clinical Impression: Sepsis due to pneumonia, Acute exacerbation of chronic obstructive airways disease Disposition: Admitted As Inpatient Condition on Discharge: Fair Referrals: Tino Medrano MD [Staff Physician] - - Critical Care Critical Care Time: Yes Attestation: On 08/23/21, the high probability of a clinically significant, sudden or life threatening deterioration of the following system(s) required my full and direct attention, intervention and personal management. The time I documented below is in addition to time spent performing reported procedures but includes the following listed in this critical care notation. Total Critical Care Time: 45 Vital system(s) involved:: Circulatory Failure, Respiratory Failure My critical care processes included: Assessment & monitoring of V/S, Initial and Re-exams, Data Review/Interpretation, Coordinating Care, Medication Orders and management, Documentation Comment: I spent 45 minutes solely in the care of this patient, with critical hypoxia, significant work of breathing, sepsis secondary to pneumonia. Time spent irrespective of separately billable procedures. Medical Decision Making - Medical Records Medical records reviewed: Yes: I reviewed the patient's medical records. - Roly Inquiry Pt receiving controlled substance: No Vital Signs: 08/23/21 09:45 08/23/21 09:50 08/23/21 10:01 Temperature 101.2 F H Temperature Source Rectal Pulse Rate 84 90 Pulse Rate [Radial] 87 Respiratory Rate 48 H 23 Blood Pressure 184/161 H Blood Pressure [Right Arm] 189/95 H Blood Pressure Mean 166 Blood Pressure Mean [Right Arm] 126 Blood Pressure Position [Right Arm] Sitting 02 Sat by Pulse Oximetry 92 L 97 Oxygen Delivery Method Nasal Cannula BiPAP Oxygen Flow Rate (LPM) 6 08/23/21 10:03 08/23/21 10:06 08/23/21 10:07 Temperature Temperature Source Pulse Rate 83 81 82 Pulse Rate [Radial] Respiratory Rate 19 23 18 Blood Pressure 178/135 H 129/78 118/72 Blood Pressure [Right Arm] Blood Pressure Mean 149 105 87 Blood Pressure Mean [Right Arm] Blood Pressure Position [Right Arm] 02 Sat by Pulse Oximetry 96 96 96 Oxygen Delivery Method BiPAP BiPAP Oxygen Flow Rate (LPM) 08/23/21 10:10 08/23/21 10:16 08/23/21 10:20 Temperature Temperature Source Pulse Rate 81 80 79 Pulse Rate [Radial] Respiratory Rate 16 18 24 Blood Pressure 117/82 110/72 118/62 Blood Pressure [Right Arm] Blood Pressure Mean 91 81 80 Blood Pressure Mean [Right Arm] Blood Pressure Position [Right Arm] 02 Sat by Pulse Oximetry 97 97 97 Oxygen Delivery Method BiPAP BiPAP Oxygen Flow Rate (LPM) 08/23/21 10:25 08/23/21 10:30 08/23/21 10:36 Temperature Temperature Source Pulse Rate 79 77 78 Pulse Rate [Radial] Respiratory Rate 20 22 22 Blood Pressure 115/70 113/71 104/65 L Blood Pressure [Right Arm] Blood Pressure Mean 81 82 76 Blood Pressure Mean [Right Arm] Blood Pressure Position [Right Arm] 02 Sat by Pulse Oximetry 96 97 96 Oxygen Delivery Method BiPAP BiPAP BiPAP Oxygen Flow Rate (LPM) 08/23/21 10:40 08/23/21 10:45 08/23/21 10:51 Temperature Temperature Source Pulse Rate 78 79 75 Pulse Rate [Radial] Respiratory Rate 23 19 18 Blood Pressure 118/64 110/68 104/63 L Blood Pressure [Right Arm] Blood Pressure Mean 82 78 74 Blood Pressure Mean [Right Arm] Blood Pressure Position [Right Arm] 02 Sat by Pulse Oximetry 95 96 97 Oxygen Delivery Method BiPAP BiPAP BiPAP Oxygen Flow Rate (LPM) 08/23/21 10:55 08/23/21 11:00 08/23/21 11:05 Temperature Temperature Source Pulse Rate 78 66 69 Pulse Rate [Radial] Respiratory Rate 22 Blood Pressure 112/57 L 118/71 120/68 Blood Pressure [Right Arm] Blood Pressure Mean 69 78 80 Blood Pressure Mean [Right Arm] Blood Pressure Position [Right Arm] 02 Sat by Pulse Oximetry 96 97 96 Oxygen Delivery Meth
[2021-08-23 10:44] LABS: Troponin I < 0.01 ng/ml (0.00-0.034)
[2021-08-23 12:20] LABS: Procalcitonin 0.063 ng/mL (0.0-2.0)
--- NOTE | 2021-08-23 12:34 | PC.NURSE ---
Dr Renteria spoke with Dr Cortez
--- NOTE | 2021-08-23 13:09 | PC.NURSE ---
ATTEMPTED TO CALL REPORT. NO ANSWER WHEN TRANSFER TO RN PHONE
--- NOTE | 2021-08-23 13:28 | PC.NURSE ---
REPORT CALLED TO CLYDE SHARMA
--- NOTE | 2021-08-23 13:51 | PC.NURSE ---
pt arrived to the floor at this time
--- NOTE | 2021-08-23 18:13 | PC.NURSE ---
SHE HAS BECOME MORE ALERT SINCE ARRIVAL TO FLOOR. SHE IS ABLE TO ANSWER QUESTIONS APPROPRIATELY AND FOLLOWS COMMANDS. HAUSER CATH IN PLACE DRAINING CLEAR YELLOW URINE. 3LNC FOR O2 SUPPORT WITH O2 SATS IN HIGH 90'S. PACED RHYTHM ON TELEMETRY WITH HR IN THE 60'S.
[2021-08-24] VITALS (7 sets, daily range): BP systolic 125–168; BP diastolic 66–87; PULSE 60–74; RESP 16–20; TEMP 36.4–37.6; O2SAT 92–98; BMI 44.3
[2021-08-24 00:43] LABS: POC Glucose,Bedside 149 (70-110)
[2021-08-24 06:36] LABS: POC Glucose,Bedside 114 (70-110)
--- NOTE | 2021-08-24 06:45 | PC.NURSE ---
pt rested most of the night, f/c to bsd, + BM, VSS, o2 sat 95% on 3L PNC, pt with expiratory wheezes noted, FSBS < 150 and has required no coverage, pt oriented to name, but confused at times to place and time.
[2021-08-24 06:59] LABS: Lactic Acid 0.9 mmol/L (0.7-2.1)
--- NOTE | 2021-08-24 08:36 | HMH.HP ---
*Admission Date: 08/23/21 *Chief complaint: Cough/shortness of air *History of present illness: 66-year-old white female who resides at a half-way in [place] who has had increasing congestion and cough and oxygen requirement over the past couple of days. Was much more sluggish yesterday and was sent to the emergency department. Work-up in the ER revealed slightly elevated BNP levels but patient has a history of diastolic dysfunction with preserved ejection fraction chronically, and chest x-ray is more consistent along with her exam of pneumonia. Patient was given IV Zosyn, admitted to hospital for further diagnostic testing. This morning she states she feels better and is breathing all bit more easily. [facility] History I have reviewed the patient's past medical history: Yes Medical History: Reports:: Arrhythmia, Atherosclerotic Heart Disease, Atrial Fibrillation, Cardiomyopathy, Congestive Heart Failure, Congenital Heart Disease, Coronary Artery Disease, Diabetes Mellitus Type 2, Home Oxygen, Hyperlipidemia, Hypertension, Internal Pacemaker, Myocardial Infarction, Peripheral Vascular Disease Denies:: Cancer, Diabetes Mellitus Type 1, MRSA *Have you ever received a pneumonia vaccine?: Yes *Have you received a flu vaccine this season?: Yes Other Medical History: Reports: Arthritis (osteoarthritis), Hypothyroidism, Liver Disease, Sinus Problems, Thyroid Disease Other Surgeries: Yes: Cardiac Catheterization, Cardiac Surgery, Pacemaker Amputation: Yes (left toes) Fractures: No - *Social History Last grade of school completed: High school graduate Smoking Status: Former smoker Tobacco Type: cigarettes # Packs/Day (cigarettes): 1 #Yrs smoked (if former smoker): 20 Alcohol Intake: never Substance Use Type: denies use *Occupational Status:: retired Housing: assisted living facility *Travel in the last 8 weeks: None Family Hx:: No significant family history Review of Systems - Review of Systems Review of systems:: pertinent systems reviewed and negative unless documented below Meds Home Medications Medication Instructions Recorded Confirmed Type apixaban 5 mg tablet 5 mg PO BID 10/26/19 08/23/21 History aspirin 81 mg tablet,delayed 81 mg PO DAILY 10/26/19 08/23/21 History release levothyroxine 25 mcg tablet 25 mcg PO DAILY 10/26/19 08/23/21 History lisinopril 5 mg tablet 5 mg PO DAILY 10/26/19 08/23/21 History potassium chloride 20 mEq 20 meq PO DAILY 10/26/19 08/23/21 History tablet,extended release Budesonide/Formoterol Fumarate 1 puff IH BID 08/08/21 08/23/21 History [Symbicort 160-4.5 Mcg Inhaler] Insulin Degludec [Tresiba 55 units SQ HS 08/08/21 08/23/21 History Flextouch U-100] Insulin Regular, Human [Novolin R] 0 units SQ ACHS 08/08/21 08/23/21 History Ipratropium/Albuterol Sulfate 3 ml IH Q4HP PRN 08/08/21 08/23/21 History [Iprat-Albut 0.5-3(2.5) mg/3 ml] Metoprolol Succinate 100 mg PO DAILY 08/08/21 08/23/21 History Montelukast Sodium 10 mg PO HS 08/08/21 08/23/21 History Spironolactone [Spironolactone 25 mg PO DAILY 08/08/21 08/23/21 History 25mg Tablet] Azelastine HCl 1 drop EYE-BOTH BID 08/09/21 08/23/21 History Escitalopram Oxalate [Lexapro] 5 mg PO DAILY 08/09/21 08/23/21 History Fluticasone Propionate [Flonase 1 spr NS BID 08/09/21 08/23/21 History 50mcg nasal spray 16gm] Levocetirizine Dihydrochloride 5 mg PO DAILY 08/09/21 08/23/21 History Rosuvastatin Calcium [Crestor 10mg 10 mg PO HS 08/09/21 08/23/21 History Tablets] Bumetanide 1 mg PO DAILY 30 Days #30 tab 08/10/21 08/23/21 Rx Allergies Allergy/AdvReac Type Severity Reaction Status Date / Time No Known Allergies Allergy Verified 11/17/19 11:43 Exam Vital signs and Labs for Last 24 Hours: Temp Pulse Resp BP Pulse Ox 98.0 F 62 18 125/66 97 08/24/21 07:17 08/24/21 07:17 08/24/21 07:17 08/24/21 07:17 08/24/21 07:41 Laboratory Results - last 24 hr 08/23/21 09:55: VBG pH 7.35, VBG pCO2 51.2 H,
--- NOTE | 2021-08-24 11:22 | P.CONPHA_ITS ---
[facility] Pharmacy VTE Monitoring - Patient Demographics Admission date: 08/24/21 Report Date: 08/24/21 Time: 11:22 Allergies/Adverse Reactions: Patient Allergies No Known Allergies Allergy (Verified 11/17/19 11:43) Height: 1.65 m Weight: 120.656 kg Patient Problems: Current Active Problems Sepsis due to pneumonia (Acute) Acute exacerbation of chronic obstructive airways disease (Acute) Pneumonia (Acute) Morbid obesity (Chronic) Diabetes mellitus (Chronic) - VTE Risk Labs: VTE Related Lab Results Hgb 11.0 g/dL (12.2-16.2) L 08/23/21 10:00 Hct 32.8 % (37.0-47.0) L 08/23/21 10:00 Plt Count 118 K/mm3 (142-424) L 08/23/21 10:00 BUN 19 mg/dl (7-17) H 08/23/21 10:00 Creatinine 1.00 mg/dl (0.52-1.04) 08/23/21 10:00 Estimated Creat Clear 48 mL/min (50-200) 08/23/21 10:00 - Prophylaxis Types of VTE Prophylaxis: TEDS Knee High, Pharmacological (VINCE HOSE AND ELIQUIS ORDERED)
--- NOTE | 2021-08-24 19:27 | PC.NURSE ---
SHE IS MORE ALERT TODAY. HAUSER CATH WAS REMOVED. PT URINATING BUT INCONTINENT. [facility]
[2021-08-24 21:16] LABS: POC Glucose,Bedside 192 (70-110)
[2021-08-24 21:16] LABS: POC Glucose,Bedside 176 (70-110)
[2021-08-24 21:16] LABS: POC Glucose,Bedside 179 (70-110)
[2021-08-24 21:17] LABS: POC Glucose,Bedside 228 (70-110)
[2021-08-25] VITALS (8 sets, daily range): BP systolic 124–141; BP diastolic 66–97; PULSE 61–80; RESP 17–22; TEMP 36.7–37.3; O2SAT 90–98; BMI 43.8
--- NOTE | 2021-08-25 03:57 | PC.NURSE ---
A&OX4. TOLERATING 3LNC WELL T/O NIGHT. PT HAS BEEN INCONTINENT T/O SHIFT, REQUIRING A FULL BED CHANGE. PT HAS SLEPT T/O MAJORITY OF NIGHT. NO C/O THUS FAR. VSS WILL CONTINUE TO MONITOR.
--- NOTE | 2021-08-25 05:34 | PC.NURSE ---
THIS NURSE ENCOURAGED PT TO STAND TO GET TO BEDSIDE COMMODE IN ORDER TO HAVE A BM, GET A BATH, AND CHANGE THE BED. AT FIRST, PT WAS VERY HESITANT BUT SHE WAS ABLE TO STAND AND PIVOT TO BEDSIDE, AND STAND AND PIVOT BACK TO BED. TOLERATED WELL. PT WAS GIVEN FULL BATH AND BED CHANGE. PT HAD MODERATE BM. ENCOURAGED PT TO CONTINUE MOVING HERSELF IN THE BED AND GET OOB TO CHAIR FOR MEALS/ETC. VSS WILL CONTINUE TO MONITOR.
[2021-08-25 07:44] LABS: Basophils % 0.3 % (0.1-2.0); Eosinophils # 0.2 K/mm3 (0.0-0.4); Eosinophils % 2.9 % (0.1-12.0); Hemoglobin 10.5 g/dL (12.2-16.2); Lymphocytes % 12.3 % (10-50); Mean Corpuscular HGB Conc 32.8 g/dL (31.8-35.4); Mean Corpuscular Hemoglobin 29.7 pg (27.0-31.2); Mean Corpuscular Volume 90.5 fl (81-99); Mean Platelet Volume 9.5 fl (7.4-10.4); Monocytes # 0.7 K/mm3 (0.1-1.0); Monocytes % 8.8 % (1.7-9.3); Neutrophils # 5.9 K/mm3 (1.8-7.8); Neutrophils % 75.7 % (37.0-80.0); Platelet Count 93 K/mm3 (142-424); Red Blood Count 3.54 M/mm3 (4.20-5.40); Red Cell Distribution Width 14.2 % (11.5-17.5); White Blood Count 7.7 K/mm3 (4.8-10.8)
--- NOTE | 2021-08-25 08:50 | P.PN_ITS ---
Internal Medicine - PN: Subj *Date: 08/25/21 *Time: 08:50 Interval history: Patient overall feels a little better but is wheezy and coughing this morning and states that she may have choked on some water that she drank with a thin straw. No vomiting or GI pain, no chest pain. Exam Vital signs and Labs for Last 24 Hours: Temp Pulse Resp BP Pulse Ox 98.4 F 67 17 130/66 98 08/25/21 07:48 08/25/21 07:48 08/25/21 07:48 08/25/21 07:48 08/25/21 07:48 Laboratory Results - last 24 hr 08/23/21 16:35: POC Glucose 192 H 08/24/21 11:17: POC Glucose 176 H 08/24/21 16:36: POC Glucose 179 H 08/24/21 20:16: POC Glucose 228 H 08/25/21 06:30: WBC 7.7 D, RBC 3.54 L, Hgb 10.5 L, Hct 32.0 L, MCV 90.5, MCH 29.7, MCHC 32.8, RDW 14.2, Plt Count 93 L, MPV 9.5, Neut % (Auto) 75.7, Lymph % (Auto) 12.3, [place] % (Auto) 8.8, Eos % (Auto) 2.9, Baso % (Auto) 0.3, Neut # (Auto) 5.9, Lymph # (Auto) 1.0, [place] # (Auto) 0.7, Eos # (Auto) 0.2, Baso # (Auto) 0.0 I & O for Last 24 hours: Intake & Output 08/22/21 08/23/21 08/24/21 08/25/21 11:59 11:59 11:59 11:59 Intake Total 2.75 / 2.75 100 / 100 540 / 540 Output Total 1850 / 1850 Balance 2.75 / 2.75 -1750 / -1750 540 / 540 Weight 255 lb 266 lb 263 lb 3 oz Microbiology Reports for the Last 24 Hours: Microbiology 08/23/21 10:00 Urine,Clean Catch Urine Culture - Preliminary NO GROWTH AFTER 24 HOURS Narrative: Patient is alert. Audible wheezing, expiratory rhonchi. Symmetric air movement. Heart rate regular Skin clear except for scattered bruising on arms from IV site placement attempts. Abdomen soft and nontender. Moving all extremities well and neurologically intact. Assessment and Plan (1) Pneumonia Status: Acute Category: Medical Code(s): J18.9 - Pneumonia, unspecified organism (2) Acute exacerbation of chronic obstructive airways disease Status: Acute Category: Medical Code(s): J44.1 - Chronic obstructive pulmonary disease with (acute) exacerbation (3) Diabetes mellitus Status: Chronic Qualifiers: Category: Medical Code(s): E11.9 - Type 2 diabetes mellitus without complications (4) Morbid obesity Status: Chronic Category: Medical Code(s): E66.01 - Morbid (severe) obesity due to excess calories - Assessment and plan all Dx Assessment and Plan for all problems:: High risk of aspiration pneumonia. Start Solu-Medrol and nebs with higher frequency given her wheezing. Continue Zosyn as white count has improved. Speech therapy evaluation and repeat chest x-ray today.
--- NOTE | 2021-08-25 08:51 | XR_ITS ---
PROCEDURE: XR CHEST 2V CLINICAL HISTORY: f/u wheezing COMPARISON: CR XR CHEST PORTABLE from 08/08/2021 CR XR CHEST PORTABLE from 08/23/2021 FINDINGS: Biventricular pacemaker present with right atrial lead. Borderline cardiomegaly without failure. There are low lung volumes. CHF has shown improvement since 08/23/2021. Trace right effusion. Improvement in bilateral airspace disease. No acute bony abnormalities. IMPRESSION: Improvement in CHF and bilateral airspace disease Dictated by: Joss Goodrich MD 08/25/2021 09:58 Joss Goodrich MD in [place] 08/25/2021 09:58
[2021-08-25 09:08] LABS: Chloride 104 mmol/L (98-107)
[2021-08-25 09:09] LABS: Potassium 3.9 mmoL/L (3.5-5.1); Sodium 139 mmol/L (136-145)
[2021-08-25 09:11] LABS: Alanine Aminotransferase 25 U/L (12-78); Albumin Level 3.3 g/dl (3.5-5.0); Albumin/Globulin Ratio 1.1 (1.1-1.8); Alkaline Phosphatase 101 U/L (38-126); Anion Gap 10.9 mEq/L (5-15); Aspartate Amino Transferase 32 U/L (14-36); Bilirubin,Total 1.3 mg/dl (0.2-1.3); Blood Urea Nitrogen 20 mg/dl (7-17); Calcium 8.5 mg/dl (8.4-10.2); Carbon Dioxide 28 mmol/L (22.0-30.0); Creatinine Clearance Estimated 48 mL/min (50-200); Estimated Glomerular Filt Rate 55 ml/min (>60); GFR (African American) 67 ML/MIN (>60); Globulin 2.9 g/dL (1.3-3.2); Glucose 149 mg/dl (74-100); Total Protein,Serum 6.2 g/dl (6.3-8.2)
[2021-08-25 11:23] LABS: POC Glucose,Bedside 234 (70-110)
--- NOTE | 2021-08-25 13:44 | HMH.SLDYSPHA ---
Speech & Language Evaluation Speech/Language Dysphagia Evaluation Start: 08/25/21 13:36 Freq: ONCE Status: Active Protocol: Document 08/25/21 10:45 LELO (Rec: 08/25/21 13:44 LELO [id number]) Dysphagia Assess/Goals/Plan Assessment Date of Evaluation: 08/25/21 Evaluation Type Initial Certification Assessment/Problems Dysphagia Does Patient Qualify for Service No Qualify/Failure Comment Diet modifications made for patient. Patient will be evaluated again when condition improves. Recommendations PHYSICIAN CERTIFICATION: The specified therapy services are required, authorized, and reviewed every 30 days. Diet Recommendations Mechanical Soft Liquid Type Recommendations [place] Consistency SL Swallow Guidelines Standard Aspiration Prec. Dysphagia Swallow Precautions/Strategies Sitting Upright (90 deg),Small Bites and Sips,Alternate Liquids/Solids Plan Pt/Guardian verbally ack understanding Yes of dx/prognosis/goals G -code Required No Speech & Language HPI Language Primary Language Slovak General Information General Current Food Consistancy Regular,Thin Liquids Dentition Good Dentition Oxygen Status Nasal Cannula Facial Symmetry Symmetrical Patient Orientation Person,Place Ability to Follow Directions Good Communication Ability No Impairment Dysphagia:Food Presentation Evaluation Food Type Pureed,Mechanical Soft,Liquid, Pudding Normal/Thin Liquid Response Coughing after swallow Dysphagia Evaluation Summary Ms. Ewing was referred for a bedside evaluation of swallowing after Dr. Cortez observed her choking on thin water from straw. Ms. Ewing was given the following consistencies: thins via straw and open cup, nectar via straw and open cup, pudding, pureed, mechanical soft, and pill with nectar wash. Ms. Ewing did exhibit coughing before and after bolus with thin liquids. Ms. Ewing is weak physically at this time. It is recommended that she be placed on mechanical soft diet with chopped meats with sauce /gravy
--- NOTE | 2021-08-25 15:02 | SW/DCPLANNER ---
PATIENT IS A RESIDENT OF [facility] AND IS ON A MEDICAID BEDHOLD...I HAVE SENT UPDATED INFORMATION TO [facility] THIS AFTERNOON WILL FOLLOW UP IN THE AM...
--- NOTE | 2021-08-25 16:54 | PC.NURSE ---
Pt has been pleasant and cooperative this shift. A&O X4. No complaints of pain or SOA. Pt is currently receiving O2 via NC @ 2 LPM with sats. >90%. Lung sounds reveal expiratory rhonchi/wheezing. 2+ pitting edema noted to BLE. Skin is C/D/I. Pt is incontinent and voids clear, yellow urine without issue. 1 large, brown, soft BM thus far this shift. Pt ambulates with assistance X1 to the BSC and back to bed. Pt refused to sit up in the recliner today and has slept the majority of the shift. Appetite is good and pt is tolerating a mechanical soft diet well. FSBS results have been 234 and 370. 20 G peripheral IV in the RT hand is patent and SL. VSS. Call light within reach. Will continue to monitor.
[2021-08-25 20:46] LABS: POC Glucose,Bedside 144 (70-110)
[2021-08-26] VITALS: BP 164/97; PULSE 78; RESP 19; TEMP 36.6; O2SAT 96
--- NOTE | 2021-08-26 03:59 | PC.NURSE ---
No acute changes overnight. PT continues on 2L NC with a persistent nonproductive cough. NO c/o pain this shift, pt has rested comfortably. Pt has been incontinent of urine this shift, purwick is in place. IV patent, SL. no concerns at this time.
[2021-08-26 04:00] VITALS: BP 169/86; PULSE 67; RESP 18; TEMP 36.8; O2SAT 96
[2021-08-26 05:00] VITALS: BMI 44.3
[2021-08-26 05:50] VITALS: PULSE 61; PULSE 63; O2SAT 96
[2021-08-26 05:54] VITALS: PULSE 63; RESP 18
--- NOTE | 2021-08-26 05:55 | PC.NURSE ---
Sputum induced. Pt unable to make productive cough, specimen cup left at bedside.
[2021-08-26 06:09] LABS: POC Glucose,Bedside 370 (70-110)
[2021-08-26 06:09] LABS: POC Glucose,Bedside 370 (70-110)
[2021-08-26 06:09] LABS: POC Glucose,Bedside 341 (70-110)
[2021-08-26 06:29] LABS: Basophils % 0.1 % (0.1-2.0); Hematocrit 30.9 % (37.0-47.0); Lymphocytes # 0.5 K/mm3 (0.7-4.5); Lymphocytes % 7.6 % (10-50); Mean Corpuscular HGB Conc 32.3 g/dL (31.8-35.4); Mean Corpuscular Hemoglobin 29.2 pg (27.0-31.2); Mean Corpuscular Volume 90.5 fl (81-99); Mean Platelet Volume 9.2 fl (7.4-10.4); Monocytes # 0.1 K/mm3 (0.1-1.0); Monocytes % 1.6 % (1.7-9.3); Neutrophils # 5.4 K/mm3 (1.8-7.8); Neutrophils % 90.6 % (37.0-80.0); Platelet Count 108 K/mm3 (142-424); Red Blood Count 3.42 M/mm3 (4.20-5.40); Red Cell Distribution Width 14.1 % (11.5-17.5); White Blood Count 5.9 K/mm3 (4.8-10.8)
[2021-08-26 06:34] LABS: Alanine Aminotransferase 20 U/L (12-78); Albumin Level 3.1 g/dl (3.5-5.0); Alkaline Phosphatase 81 U/L (38-126); Anion Gap 9.1 mEq/L (5-15); Aspartate Amino Transferase 24 U/L (14-36); Bilirubin,Total 0.8 mg/dl (0.2-1.3); Blood Urea Nitrogen 22 mg/dl (7-17); Calcium 8.5 mg/dl (8.4-10.2); Carbon Dioxide 31 mmol/L (22.0-30.0); Chloride 101 mmol/L (98-107); Creatinine Clearance Estimated 40 mL/min (50-200); Estimated Glomerular Filt Rate 45 ml/min (>60); GFR (African American) 54 ML/MIN (>60); Glucose 365 mg/dl (74-100); MANUAL DIFFERENTIAL MANUAL DIFFERENTIAL (MANUAL DIFF); Potassium 4.1 mmoL/L (3.5-5.1); Sodium 137 mmol/L (136-145); Total Protein,Serum 6.1 g/dl (6.3-8.2)
--- NOTE | 2021-08-26 07:31 | HMH.DCSUM ---
General - General Admission date:: 08/23/21 Discharge date: 08/26/21 HPI HPI: 66-year-old white female who resides at a [facility] in [place] who has had increasing congestion and cough and oxygen requirement over the past couple of days. Was much more sluggish yesterday and was sent to the emergency department. Work-up in the ER revealed slightly elevated BNP levels but patient has a history of diastolic dysfunction with preserved ejection fraction chronically, and chest x-ray is more consistent along with her exam of pneumonia. Patient was given IV Zosyn, admitted to hospital for further diagnostic testing. This morning she states she feels better and is breathing all bit more easily. Hospital Course Hospital Course: Initiated on Zosyn and diuresed. Has responded well to both approaches. We will plan to continue empiric course of antibiotics for pneumonia as well as continue with aggressive daily diuresis using Bumex. Has remained afebrile during hospital admission. Breathing better on day of discharge. Stable oxygen requirement. Tolerating p.o. intake without difficulty. Medically stable for discharge back to [facility] for continued antibiotics. Examined on day of discharge. Continue Zosyn 3.375 g four times a day for five more days. No further steroids Resume regular diabetes/insulin regimen Objective Vital signs: Temp Pulse Resp BP Pulse Ox 98.2 F 63 18 169/86 H 96 08/26/21 04:00 08/26/21 05:54 08/26/21 05:54 08/26/21 04:00 08/26/21 05:50 Narrative: - Constitutional no acute distress - *Routine HEENT Exam Head: Present: normocephalic Eye: Present: EOMI, PERRL ENT: Present: mucous membranes moist - *Routine Neck Exam Present: supple. Absent: lymphadenopathy - *Routine Respiratory Exam Present: prolonged expiratory phase, rhonchi - *Routine Cardiovascular Exam Present: RRR - *Routine Abdominal Exam Present: soft, normoactive bowel sounds. Absent: tenderness - *Routine Extremities Exam Absent: cyanosis, clubbing, edema; stable amputation of left forefoot - *Routine Skin Exam Present: warm. Absent: rash - *Routine Neurological Exam Present: alert, oriented X3 Results Labs on day of discharge: Labs from last 24 hours 08/26/21 08/26/21 08/26/21 05:47 05:47 05:09 WBC 5.9 RBC 3.42 L Hgb 10.0 L Hct 30.9 L MCV 90.5 MCH 29.2 MCHC 32.3 RDW 14.1 Plt Count 108 L MPV 9.2 Neut % (Auto) 90.6 H Lymph % (Auto) 7.6 L [place] % (Auto) 1.6 L Eos % (Auto) 0.0 L Baso % (Auto) 0.1 Neut # (Auto) 5.4 Lymph # (Auto) 0.5 L [place] # (Auto) 0.1 Eos # (Auto) 0.0 Baso # (Auto) 0.0 Sodium 137 Potassium 4.1 Chloride 101 Carbon Dioxide 31 H Anion Gap 9.1 BUN 22 H Creatinine 1.20 H Estimated Creat Clear 40 Estimated GFR 45 L Est GFR ( Amer) 54 L Glucose 365 H D POC Glucose 341 H* Calcium 8.5 Total Bilirubin 0.8 AST 24 ALT 20 Alkaline Phosphatase 81 Total Protein 6.1 L Albumin 3.1 L Globulin 3.0 Albumin/Globulin Ratio 1.0 L 08/25/21 08/25/21 08/25/21 21:28 16:02 10:55 WBC RBC Hgb Hct MCV MCH MCHC RDW Plt Count MPV Neut % (Auto) Lymph % (Auto) [place] % (Auto) Eos % (Auto) Baso % (Auto) Neut # (Auto) Lymph # (Auto) [place] # (Auto) Eos # (Auto) Baso # (Auto) Sodium Potassium Chloride Carbon Dioxide Anion Gap BUN Creatinine Estimated Creat Clear Estimated GFR Est GFR ( Amer) Glucose POC Glucose 370 H* 370 H* 234 H Calcium Total Bilirubin AST ALT Alkaline Phosphatase Total Protein Albumin Globulin Albumin/Globulin Ratio 08/25/21 08/25/21 08/25/21 06:30 06:30 05:18 WBC 7.7 D RBC 3.54 L Hgb 10.5 L Hct 32.0 L MCV 90.5 MCH 29.7 MCHC 32.8 R
[2021-08-26 08:00] VITALS: BP 138/94; PULSE 84; RESP 16; TEMP 36.7; O2SAT 95
[2021-08-26 09:35] LABS: Hypochromasia 1+; Lymphocytes % 5 % (10-50); Monocytes % 2 % (2-9); Neutrophils % 93 % (42-76); Platelet Estimate Normal; Total Cells Counted 100
--- NOTE | 2021-08-26 10:53 | P.PN_ITS ---
Internal Medicine - PN: Subj *Date: 08/26/21 *Time: 10:53 Exam Vital signs and Labs for Last 24 Hours: Temp Pulse Resp BP Pulse Ox 98.0 F 84 16 138/94 H 95 08/26/21 08:00 08/26/21 08:00 08/26/21 08:00 08/26/21 08:00 08/26/21 08:00 Laboratory Results - last 24 hr 08/25/21 05:18: POC Glucose 144 H 08/25/21 10:55: POC Glucose 234 H 08/25/21 16:02: POC Glucose 370 H* 08/25/21 21:28: POC Glucose 370 H* 08/26/21 05:09: POC Glucose 341 H* 08/26/21 05:47: WBC 5.9, RBC 3.42 L, Hgb 10.0 L, Hct 30.9 L, MCV 90.5, MCH 29.2, MCHC 32.3, RDW 14.1, Plt Count 108 L, MPV 9.2, Neut % (Auto) 90.6 H, Lymph % (Auto) 7.6 L, [place] % (Auto) 1.6 L, Eos % (Auto) 0.0 L, Baso % (Auto) 0.1, Neut # (Auto) 5.4, Lymph # (Auto) 0.5 L, [place] # (Auto) 0.1, Eos # (Auto) 0.0, Baso # (Auto) 0.0, Total Counted 100, Neutrophils % (Manual) 93 H, Lymphocytes % (Manual) 5 L, Monocytes % (Manual) 2, Platelet Estimate Normal, Hypochromasia 1+ 08/26/21 05:47: Sodium 137, Potassium 4.1, Chloride 101, Carbon Dioxide 31 H, Anion Gap 9.1, BUN 22 H, Creatinine 1.20 H, Estimated Creat Clear 40, Estimated GFR 45 L, Est GFR ( Amer) 54 L, Glucose 365 H D, Calcium 8.5, Total Bilirubin 0.8, AST 24, ALT 20, Alkaline Phosphatase 81, Total Protein 6.1 L, Albumin 3.1 L, Globulin 3.0, Albumin/Globulin Ratio 1.0 L I & O for Last 24 hours: Intake & Output 08/23/21 08/24/21 08/25/21 08/26/21 23:59 23:59 23:59 23:59 Intake Total 2.75 / 2.75 400 / 400 700 / 700 240 / 240 Output Total 1100 / 1100 750 / 750 Balance -1097.25 / -1097.25 -350 / -350 700 / 700 240 / 240 Weight 120.684 kg 120.656 kg 119.38 kg 120.7 kg Microbiology Reports for the Last 24 Hours: Microbiology 08/23/21 10:00 Urine,Clean Catch Urine Culture - Final NO GROWTH AFTER 48 HOURS 08/23/21 10:00 Blood Blood Culture - Preliminary NO GROWTH AFTER 48 HOURS 08/23/21 10:00 Blood Blood Culture - Preliminary NO GROWTH AFTER 48 HOURS Assessment and Plan (1) Pneumonia Status: Acute Category: Medical Code(s): J18.9 - Pneumonia, unspecified organism (2) Acute exacerbation of chronic obstructive airways disease Status: Acute Category: Medical Code(s): J44.1 - Chronic obstructive pulmonary disease with (acute) exacerbation (3) Diabetes mellitus Status: Chronic Qualifiers: Category: Medical Code(s): E11.9 - Type 2 diabetes mellitus without complications (4) Morbid obesity Status: Chronic Category: Medical Code(s): E66.01 - Morbid (severe) obesity due to excess calories The patient's infection will respond to the chosen ABx?: Yes (EMPIRIC THERAPY) Could a more targeted ABx be ordered?: No (PT DISCHARGING TODAY)
[2021-08-26 12:39] VITALS: BP 163/84; PULSE 86; RESP 22; TEMP 36.4; O2SAT 83
[2021-08-27 05:03] LABS: POC Glucose,Bedside 399 (70-110)
== END 2021-08-26 13:24 | DRG 194 ==
LOC: ER 12:19 → 2ND 13:31
PROVIDERS: Admitting Provider Internal Medicine Adolescent Medicine; Emergency Provider Student in an Organized Health Care Education/Training Program; PCP Nurse Practitioner Family; Visit Provider Internal Medicine Adolescent Medicine
DX: J18.9 Pneumonia, unspecified organism (principal); I42.9 Cardiomyopathy, unspecified; Z68.43 Body mass index [BMI] 50.0-59.9, adult; J44.1 Chronic obstructive pulmonary disease with (acute) exacerbation; J44.0 Chronic obstructive pulmonary disease with (acute) lower respiratory infection; I48.91 Unspecified atrial fibrillation; E66.01 Morbid (severe) obesity due to excess calories; Z99.81 Dependence on supplemental oxygen; I11.0 Hypertensive heart disease with heart failure; I50.9 Heart failure, unspecified; E03.9 Hypothyroidism, unspecified; Z79.4 Long term (current) use of insulin; Z87.891 Personal history of nicotine dependence; I25.10 Atherosclerotic heart disease of native coronary artery without angina pectoris; E11.51 Type 2 diabetes mellitus with diabetic peripheral angiopathy without gangrene; I25.2 Old myocardial infarction
CPT/HCPCS: 36415; 71045; 71046; 80053; 81001; 82803; 82962; 83605; 83735; 83880; 84145; 84484; 85007; 85025; 87040; 87086; 92610; 93005; 94640; 96365; 96367; 96375; 99285; C9803; J2543; U0003; U0005

== ENCOUNTER → 2021-09-02 08:22 | Outpatient (CLI) | payer MEDICARE, MEDICAID, SELFPAY ==
[2021-09-02 15:18] LABS: Basophils % 0.5 % (0.1-2.0); Eosinophils # 0.3 K/mm3 (0.0-0.4); Eosinophils % 4.4 % (0.1-12.0); Hematocrit 29.3 % (37.0-47.0); Hemoglobin 9.4 g/dL (12.2-16.2); Lymphocytes % 13.2 % (10-50); Mean Corpuscular HGB Conc 32.1 g/dL (31.8-35.4); Mean Corpuscular Hemoglobin 29.1 pg (27.0-31.2); Mean Corpuscular Volume 90.6 fl (81-99); Monocytes # 0.5 K/mm3 (0.1-1.0); Monocytes % 6.9 % (1.7-9.3); Neutrophils # 5.7 K/mm3 (1.8-7.8); Neutrophils % 74.9 % (37.0-80.0); Platelet Count 148 K/mm3 (142-424); Red Blood Count 3.24 M/mm3 (4.20-5.40); Red Cell Distribution Width 14.2 % (11.5-17.5); White Blood Count 7.6 K/mm3 (4.8-10.8)
[2021-09-02 16:40] LABS: NT Pro Brain Natriuretic Pep. 1750 pg/mL (0-125)
[2021-09-02 17:21] LABS: Chloride 107 mmol/L (98-107); Sodium 143 mmol/L (136-145)
[2021-09-02 17:24] LABS: Alanine Aminotransferase 14 U/L (12-78); Albumin Level 2.7 g/dl (3.5-5.0); Alkaline Phosphatase 74 U/L (38-126); Aspartate Amino Transferase 23 U/L (14-36); Bilirubin,Total 0.2 mg/dl (0.2-1.3); Blood Urea Nitrogen 18 mg/dl (7-17); Calcium 7.9 mg/dl (8.4-10.2); Carbon Dioxide 32 mmol/L (22.0-30.0); Estimated Glomerular Filt Rate 50 ml/min (>60); GFR (African American) 60 ML/MIN (>60); Globulin 2.6 g/dL (1.3-3.2); Glucose 86 mg/dl (74-100); Total Protein,Serum 5.3 g/dl (6.3-8.2)
== END ==
PROVIDERS: Visit Provider Internal Medicine Adolescent Medicine
DX: R06.00 Dyspnea, unspecified (principal); E87.6 Hypokalemia
CPT/HCPCS: 36415; 80053; 83880; 85025

== ENCOUNTER → 2021-09-04 07:01 | Outpatient (CLI) | payer MEDICARE, MEDICAID, SELFPAY | PROVIDERS: Visit Provider Internal Medicine Adolescent Medicine | DX: Z79.899 Other long term (current) drug therapy; Z09 Encounter for follow-up examination after completed treatment for conditions other than malignant neoplasm; Z86.19 Personal history of other infectious and parasitic diseases | CPT/HCPCS: 36415; 87522 ==

== ENCOUNTER → 2021-09-11 06:42 | Outpatient (CLI) | payer MEDICARE, MEDICAID, SELFPAY ==
[2021-09-11 14:40] LABS: NT Pro Brain Natriuretic Pep. 760 pg/mL (0-125)
[2021-09-11 15:52] LABS: Anion Gap 3.6 mEq/L (5-15); Blood Urea Nitrogen 30 mg/dl (7-17); Calcium 7.9 mg/dl (8.4-10.2); Carbon Dioxide 35 mmol/L (22.0-30.0); Chloride 104 mmol/L (98-107); Estimated Glomerular Filt Rate 55 ml/min (>60); GFR (African American) 67 ML/MIN (>60); Glucose 58 mg/dl (74-100); Potassium 3.6 mmoL/L (3.5-5.1); Sodium 139 mmol/L (136-145)
[2021-09-12 17:55] LABS: Basophils # 0.1 K/mm3 (0-0.2); Basophils % 3.4 % (0.1-2.0); Eosinophils # 0.3 K/mm3 (0.0-0.4); Eosinophils % 7.7 % (0.1-12.0); Hematocrit 29.2 % (37.0-47.0); Hemoglobin 9.4 g/dL (12.2-16.2); Lymphocytes % 29.7 % (10-50); Mean Corpuscular HGB Conc 32.4 g/dL (31.8-35.4); Mean Corpuscular Hemoglobin 29.3 pg (27.0-31.2); Mean Corpuscular Volume 90.6 fl (81-99); Mean Platelet Volume 11.1 fl (7.4-10.4); Monocytes # 0.4 K/mm3 (0.1-1.0); Monocytes % 13.2 % (1.7-9.3); Neutrophils # 1.5 K/mm3 (1.8-7.8); Neutrophils % 45.9 % (37.0-80.0); Platelet Count 130 K/mm3 (142-424); Red Blood Count 3.22 M/mm3 (4.20-5.40); White Blood Count 3.2 K/mm3 (4.8-10.8)
== END ==
PROVIDERS: Internal Medicine Adolescent Medicine; Visit Provider Nurse Practitioner Family
DX: R06.09 Other forms of dyspnea (principal); E11.9 Type 2 diabetes mellitus without complications; E78.5 Hyperlipidemia, unspecified; Z79.899 Other long term (current) drug therapy; Z79.4 Long term (current) use of insulin
CPT/HCPCS: 36415; 80048; 83880; 85025

== ENCOUNTER → 2021-09-12 06:20 | Outpatient (CLI) | payer MEDICARE, MEDICAID, SELFPAY ==
[2021-09-12 14:15] LABS: Basophils # 0.1 K/mm3 (0-0.2); Basophils % 2.2 % (0.1-2.0); Eosinophils # 0.3 K/mm3 (0.0-0.4); Eosinophils % 5.8 % (0.1-12.0); Hematocrit 29.3 % (37.0-47.0); Hemoglobin 9.4 g/dL (12.2-16.2); Lymphocytes # 1.2 K/mm3 (0.7-4.5); Lymphocytes % 22.8 % (10-50); Mean Corpuscular HGB Conc 31.9 g/dL (31.8-35.4); Mean Corpuscular Hemoglobin 29.1 pg (27.0-31.2); Mean Corpuscular Volume 91.1 fl (81-99); Mean Platelet Volume 9.5 fl (7.4-10.4); Monocytes # 0.6 K/mm3 (0.1-1.0); Neutrophils # 3.1 K/mm3 (1.8-7.8); Neutrophils % 58.3 % (37.0-80.0); Platelet Count 142 K/mm3 (142-424); Red Blood Count 3.22 M/mm3 (4.20-5.40); Red Cell Distribution Width 14.9 % (11.5-17.5); White Blood Count 5.3 K/mm3 (4.8-10.8)
== END ==
PROVIDERS: Visit Provider Nurse Practitioner Family
DX: R79.1 Abnormal coagulation profile (principal)
CPT/HCPCS: 36415; 85025

== ENCOUNTER → 2021-09-15 06:54 | Outpatient (CLI) | payer MEDICARE, MEDICAID, SELFPAY ==
[2021-09-15 13:57] LABS: Anion Gap 6.3 mEq/L (5-15); Blood Urea Nitrogen 30 mg/dl (7-17); Carbon Dioxide 35 mmol/L (22.0-30.0); Chloride 103 mmol/L (98-107); Estimated Glomerular Filt Rate 55 ml/min (>60); GFR (African American) 67 ML/MIN (>60); Glucose 124 mg/dl (74-100); Potassium 4.3 mmoL/L (3.5-5.1); Sodium 140 mmol/L (136-145)
== END ==
PROVIDERS: Visit Provider Nurse Practitioner Family
DX: I50.32 Chronic diastolic (congestive) heart failure (principal)
CPT/HCPCS: 36415; 80048

== ENCOUNTER 2021-09-16 07:57 | Emergency (ER) | payer MEDICARE, MEDICAID, SELFPAY ==
--- NOTE | 2021-09-16 | ECG_ITS ---
APPROVED REPORT Exam: Resting ECG HR:76 bpm ECG Measurements Heart Rate 76 AXES OR 138 P 85 QRSd 110 QRS 263 QT 424 T 33 QTc 477 Conclusion Normal sinus rhythm Right bundle branch block Anterolateral infarct, age undetermined Abnormal ECG Electronically signed by : Carlos Cortez MD 09/16/2021 17:55:38
[2021-09-16 08:01] VITALS: BP 154/68; PULSE 82; RESP 22; TEMP 36.9; O2SAT 97; BMI 58.2
--- NOTE | 2021-09-16 08:06 | PC.NURSE ---
multiple attempts for IV was unsuccessful called preop for a US IV
--- NOTE | 2021-09-16 08:11 | XR_ITS ---
PROCEDURE: XR CHEST PORTABLE CLINICAL HISTORY: soa COMPARISON: CR XR CHEST PORTABLE from 08/08/2021 CR XR CHEST PORTABLE from 08/23/2021 CR XR CHEST 2V from 08/25/2021 FINDINGS: Mild cardiomegaly. Left subclavian placed pacemaker with biventricular and right atrial leads. Consolidation noted in the right midlung. Left basilar atelectasis. There are low lung volumes with some limitation secondary to patient's body habitus. No acute bony abnormalities. IMPRESSION: Right-sided pneumonia and or atelectatic change with left basilar atelectasis. Dictated by: Joss Goodrich MD 09/16/2021 08:40 Joss Goodrich MD in [facility] 09/16/2021 08:40
--- NOTE | 2021-09-16 08:15 | HMH.EDGENADL ---
ED Disposition Clinical Impression: Atelectasis, Pulmonary infiltrate, Pyuria Congestive heart failure Qualifiers: Heart failure type: unspecified Heart failure chronicity: acute on chronic Qualified Code(s): I50.9 - Heart failure, unspecified Disposition: Home, Self-Care Condition on Discharge: Good Instructions: DI for Heart Failure, DI for Urinary Tract Infection (UTI), Atelectasis, DI for Pneumonia -- Adult Additional Instructions: Levaquin as prescribed for 6 more days. Increase Bumex to twice daily for [address] Denton will arrange repeat laboratory evaluation on 09/19/2021. Prescriptions: Bumetanide [Bumex 1mg tablet] 1 mg PO BID #6 tab Prescription Printed levoFLOXacin [Levaquin 500mg tab] 500 mg PO DAILY #6 tab Prescription Printed Referrals: Tracey Sun APRN [Primary Care Provider] - - Critical Care Critical Care Time: No Attestation: On 09/16/21, the high probability of a clinically significant, sudden or life threatening deterioration of the following system(s) required my full and direct attention, intervention and personal management. The time I documented below is in addition to time spent performing reported procedures but includes the following listed in this critical care notation. Medical Decision Making - Medical Records Medical records reviewed: Yes: I reviewed the patient's medical records. MR Comment: Reviewed discharge summary from recent admission 08/23/2021 through 08/26/2021 for similar presentation. Diagnosed with pneumonia and congestive heart failure. Diuresed and treated with Zosyn. - Roly Inquiry Pt receiving controlled substance: No Vital Signs: 09/16/21 08:01 09/16/21 08:32 Temperature 98.4 F Temperature Source Oral Pulse Rate 76 Pulse Rate [Left Radial] 82 Respiratory Rate 22 20 Blood Pressure 137/82 Blood Pressure [Right Arm] 154/68 H Blood Pressure Mean [Right Arm] 96 Blood Pressure Source [Right Arm] Automatic Cuff Blood Pressure Position [Right Arm] Sitting 02 Sat by Pulse Oximetry 97 97 Oxygen Delivery Method Nasal Cannula Nasal Cannula Oxygen Flow Rate (LPM) 6 4 - Lab Data Lab Results 09/16/21 08:15: WBC 10.0, RBC 3.07 L, Hgb 9.1 L, Hct 29.3 L, MCV 95.4, MCH 29.7, MCHC 31.1 L, RDW 15.0, Plt Count 115 L, MPV 8.9, Neut % (Auto) 83.8 H, Lymph % (Auto) 7.3 L, [place] % (Auto) 6.3, Eos % (Auto) 2.3, Baso % (Auto) 0.3, Neut # (Auto) 8.3 H, Lymph # (Auto) 0.7, [place] # (Auto) 0.6, Eos # (Auto) 0.2, Baso # (Auto) 0.0 09/16/21 08:15: Sodium 142, Potassium 4.6, Chloride 105, Carbon Dioxide 38 H, Anion Gap 3.6 L, BUN 26 H, Creatinine 1.00, Estimated Creat Clear 50, Estimated GFR 55 L, Est GFR ( Amer) 67, Glucose 187 H, Calcium 8.3 L, Total Bilirubin 0.4, AST 30, ALT 23, Alkaline Phosphatase 102, Total Protein 6.2 L, Albumin 3.1 L, Globulin 3.1, Albumin/Globulin Ratio 1.0 L 09/16/21 08:15: Lactate 0.9 09/16/21 08:15: SARS-CoV-2 (PCR) Not detected, Influenza A Untype (PCR) Not detected, Influenza Type B (PCR) Not detected 09/16/21 08:15: Troponin I < 0.01, NT-Pro-B Natriuret Pep 1790 H 09/16/21 08:15: Urine Color Yellow, Urine Appearance Sl cloudy, Urine pH 5.5, Ur Specific [place]rum 1.025, Urine Protein Trace, Urine Glucose (UA) Negative, Urine Ketones Negative, Urine Blood Trace-i, Urine Nitrate Negative, Urine Bilirubin Negative, Urine Urobilinogen 0.2, Ur Leukocyte Esterase 3+ A, Urine RBC 3-5, Urine WBC 10-20, Ur Squamous Epith Cells 5-10, Urine Bacteria Trace 09/16/21 08:33: Specimen Source Right brachial, O2 % Nc at 4 lpm, ABG pH 7.36, ABG pCO2 56.4 H, ABG pO2 86.2, ABG HCO3 31.2 H, ABG Total CO2 33.0 H, ABG O2 Saturation 96, ABG Base Excess 4.8 H Result diagrams: 09/16/21 08:15 09/16/21 08:15 Orders (Tests/Meds): ED MEDICATIONS Generic Name Dose Route Start Last Admin Trade Name Freq PRN Reason Stop Dose Admin Levofloxacin/Dextrose 750 mg in 150 mls @ 100 mls/hr 09/16/21 09:15 Levofloxacin 750mg/150ml Premix IV 09/30/21 09:1
--- NOTE | 2021-09-16 08:24 | PC.NURSE ---
us guided iv placed by surgery staff
[2021-09-16 08:27] LABS: Microscopic, Urine URINE MICROSCOPIC (MICROSCOPIC)
[2021-09-16 08:29] LABS: Coronavirus 19, PCR Not Detected (NotDetected); Influenza A, PCR Not Detected (NotDetected); Influenza B, PCR Not Detected (NotDetected)
--- NOTE | 2021-09-16 08:31 | PC.NURSE ---
RT notified of abg order
[2021-09-16 08:32] VITALS: BP 137/82; PULSE 76; RESP 20; O2SAT 97
[2021-09-16 08:32] LABS: Basophils % 0.3 % (0.1-2.0); Chloride 105 mmol/L (98-107); Eosinophils # 0.2 K/mm3 (0.0-0.4); Eosinophils % 2.3 % (0.1-12.0); Hematocrit 29.3 % (37.0-47.0); Hemoglobin 9.1 g/dL (12.2-16.2); Lymphocytes # 0.7 K/mm3 (0.7-4.5); Lymphocytes % 7.3 % (10-50); Mean Corpuscular HGB Conc 31.1 g/dL (31.8-35.4); Mean Corpuscular Hemoglobin 29.7 pg (27.0-31.2); Mean Corpuscular Volume 95.4 fl (81-99); Mean Platelet Volume 8.9 fl (7.4-10.4); Monocytes # 0.6 K/mm3 (0.1-1.0); Monocytes % 6.3 % (1.7-9.3); Neutrophils # 8.3 K/mm3 (1.8-7.8); Neutrophils % 83.8 % (37.0-80.0); Platelet Count 115 K/mm3 (142-424); Red Blood Count 3.07 M/mm3 (4.20-5.40); Sodium 142 mmol/L (136-145)
[2021-09-16 08:33] LABS: Potassium 4.6 mmoL/L (3.5-5.1)
[2021-09-16 08:35] LABS: Alanine Aminotransferase 23 U/L (12-78); Albumin Level 3.1 g/dl (3.5-5.0); Alkaline Phosphatase 102 U/L (38-126); Anion Gap 3.6 mEq/L (5-15); Aspartate Amino Transferase 30 U/L (14-36); Bilirubin,Total 0.4 mg/dl (0.2-1.3); Blood Urea Nitrogen 26 mg/dl (7-17); Carbon Dioxide 38 mmol/L (22.0-30.0); Creatinine Clearance Estimated 50 mL/min (50-200); Estimated Glomerular Filt Rate 55 ml/min (>60); GFR (African American) 67 ML/MIN (>60); Globulin 3.1 g/dL (1.3-3.2); Total Protein,Serum 6.2 g/dl (6.3-8.2)
[2021-09-16 08:36] LABS: Calcium 8.3 mg/dl (8.4-10.2); Glucose 187 mg/dl (74-100); Lactic Acid 0.9 mmol/L (0.7-2.1)
[2021-09-16 08:37] LABS: Appearance,Urine SL CLOUDY (Clear); Bilirubin,Urine Negative (Negative); Blood, Urine TRACE-I (Negative); Color,Urine YELLOW (Yellow); Glucose,Urine (UA) Negative (Negative); Ketones,Urine Negative (Negative); Leukocyte Esterase,Urine 3+ (Negative); Nitrate,Urine Negative (Negative); PH,Urine 5.5 (5.0-8.5); Protein,Urine TRACE (Negative); Specific Gravity, Urine 1.025 (1.005-1.030); Urobilinogen,Urine 0.2 EU/dl (0.2)
[2021-09-16 08:45] LABS: NT Pro Brain Natriuretic Pep. 1790 pg/mL (0-125)
[2021-09-16 08:47] LABS: Bacteria,Urine Trace /lpf
[2021-09-16 08:49] LABS: ABG HCO3 31.2 mmhg (22.0-26.0); ABG PCO2 56.4 mmhg (35.0-45.0); ABG PH 7.36 mmol/L (7.35-7.45); ABG PO2 86.2 mmhg (80-100)
[2021-09-16 08:50] LABS: ABG Base Excess 4.8 mmol/L (-2.4-2.3); ABG Oxygen Saturation 96 % (90-100)
[2021-09-16 08:52] LABS: Oxygen NC AT 4 LPM %; Source Right Brachial
[2021-09-16 08:55] LABS: Troponin I < 0.01 ng/ml (0.00-0.034)
[2021-09-16 09:00] VITALS: BP 128/77; PULSE 73; O2SAT 96
--- NOTE | 2021-09-16 09:04 | PC.NURSE ---
consulting with dr wong
--- NOTE | 2021-09-16 09:22 | PC.NURSE ---
report called to [facility]
[2021-09-16 09:31] VITALS: BP 137/66; PULSE 79; O2SAT 100
[2021-09-16 10:01] VITALS: BP 144/63; PULSE 78; RESP 18; O2SAT 97
--- NOTE | 2021-09-16 10:09 | PC.NURSE ---
pt pulled out us guided iv before iv abx finished. notified. po abx ordered
[2021-09-16 11:14] VITALS: BP 132/70; PULSE 74; RESP 18; TEMP 36.9; O2SAT 97
== END 2021-09-16 10:50 | disposition home or self-care (01) ==
PROVIDERS: Emergency Provider Emergency Medicine; PCP Nurse Practitioner Family
DX: J98.11 Atelectasis (principal); Z87.891 Personal history of nicotine dependence; R91.8 Other nonspecific abnormal finding of lung field; I50.9 Heart failure, unspecified; I48.91 Unspecified atrial fibrillation; E03.9 Hypothyroidism, unspecified; I42.8 Other cardiomyopathies; Z79.899 Other long term (current) drug therapy
CPT/HCPCS: 71045; 80053; 81001; 82803; 83605; 83880; 84484; 85025; 87040; 87086; 87088; 87186; 93005; 96365; 96375; 99284; C9803; J1956; U0003; U0005

== ENCOUNTER → 2021-09-23 07:16 | Outpatient (CLI) | payer MEDICARE, MEDICAID, SELFPAY ==
[2021-09-23 15:43] LABS: Alanine Aminotransferase 17 U/L (12-78); Albumin Level 2.2 g/dl (3.5-5.0); Albumin/Globulin Ratio 0.8 (1.1-1.8); Alkaline Phosphatase 64 U/L (38-126); Anion Gap 5.8 mEq/L (5-15); Aspartate Amino Transferase 28 U/L (14-36); Bilirubin,Total 0.3 mg/dl (0.2-1.3); Blood Urea Nitrogen 21 mg/dl (7-17); Carbon Dioxide 33 mmol/L (22.0-30.0); Chloride 84 mmol/L (98-107); Estimated Glomerular Filt Rate 45 ml/min (>60); GFR (African American) 54 ML/MIN (>60); Globulin 2.6 g/dL (1.3-3.2); Glucose 133 mg/dl (74-100); Potassium 3.8 mmoL/L (3.5-5.1); Sodium 119 mmol/L (136-145); Total Protein,Serum 4.8 g/dl (6.3-8.2)
[2021-09-23 15:48] LABS: NT Pro Brain Natriuretic Pep. 1890 pg/mL (0-125)
== END ==
PROVIDERS: Visit Provider Nurse Practitioner Family
DX: R06.00 Dyspnea, unspecified (principal)
CPT/HCPCS: 36415; 80053; 83880

== ENCOUNTER → 2021-10-22 16:05 | Outpatient (CLI) | payer MEDICARE, MEDICAID, SELFPAY ==
[2021-10-22 16:08] LABS: Microscopic, Urine URINE MICROSCOPIC (MICROSCOPIC)
[2021-10-22 16:15] LABS: Appearance,Urine CLEAR (Clear); Bilirubin,Urine Negative (Negative); Blood, Urine TRACE-I (Negative); Color,Urine YELLOW (Yellow); Glucose,Urine (UA) Negative (Negative); Ketones,Urine Negative (Negative); Leukocyte Esterase,Urine 2+ (Negative); Nitrate,Urine Negative (Negative); Protein,Urine Negative (Negative); Specific Gravity, Urine 1.015 (1.005-1.030); Urobilinogen,Urine 0.2 EU/dl (0.2)
[2021-10-22 16:19] LABS: Basophils # 0.1 K/mm3 (0-0.2); Basophils % 0.6 % (0.1-2.0); Eosinophils # 0.3 K/mm3 (0.0-0.4); Eosinophils % 3.4 % (0.1-12.0); Hemoglobin 11.2 g/dL (12.2-16.2); Lymphocytes # 1.5 K/mm3 (0.7-4.5); Lymphocytes % 17.2 % (10-50); Mean Corpuscular HGB Conc 31.9 g/dL (31.8-35.4); Mean Corpuscular Hemoglobin 28.7 pg (27.0-31.2); Mean Platelet Volume 9.9 fl (7.4-10.4); Monocytes # 0.7 K/mm3 (0.1-1.0); Monocytes % 7.7 % (1.7-9.3); Neutrophils # 6.4 K/mm3 (1.8-7.8); Platelet Count 161 K/mm3 (142-424); Red Blood Count 3.88 M/mm3 (4.20-5.40); Red Cell Distribution Width 14.7 % (11.5-17.5)
[2021-10-22 17:01] LABS: Alanine Aminotransferase 22 U/L (12-78); Albumin Level 3.4 g/dl (3.5-5.0); Albumin/Globulin Ratio 1.3 (1.1-1.8); Alkaline Phosphatase 84 U/L (38-126); Anion Gap 10.9 mEq/L (5-15); Aspartate Amino Transferase 32 U/L (14-36); Bilirubin,Total 0.4 mg/dl (0.2-1.3); Blood Urea Nitrogen 53 mg/dl (7-17); Calcium 9.8 mg/dl (8.4-10.2); Carbon Dioxide 33 mmol/L (22.0-30.0); Chloride 95 mmol/L (98-107); Estimated Glomerular Filt Rate 35 ml/min (>60); GFR (African American) 42 ML/MIN (>60); Globulin 2.7 g/dL (1.3-3.2); Glucose 244 mg/dl (74-100); Potassium 4.9 mmoL/L (3.5-5.1); Sodium 134 mmol/L (136-145); Total Protein,Serum 6.1 g/dl (6.3-8.2)
[2021-10-22 19:08] LABS: Bacteria,Urine 3+ /lpf; Squamous Epithelial Cell,Urine Occasional #/hpf (0-5)
== END ==
PROVIDERS: Visit Provider Nurse Practitioner Family
DX: R44.3 Hallucinations, unspecified (principal); R82.90 Unspecified abnormal findings in urine; B96.20 Unspecified Escherichia coli [E. coli] as the cause of diseases classified elsewhere
CPT/HCPCS: 80053; 81001; 85025; 87086; 87088; 87186

== ENCOUNTER → 2021-11-04 08:02 | Outpatient (CLI) | payer MEDICARE, MEDICAID, SELFPAY ==
[2021-11-04 13:59] LABS: Chloride 101 mmol/L (98-107); Sodium 131 mmol/L (136-145)
[2021-11-04 14:02] LABS: Alanine Aminotransferase 24 U/L (12-78); Albumin/Globulin Ratio 1.1 (1.1-1.8); Alkaline Phosphatase 79 U/L (38-126); Anion Gap 9.3 mEq/L (5-15); Aspartate Amino Transferase 34 U/L (14-36); Bilirubin,Total 0.4 mg/dl (0.2-1.3); Carbon Dioxide 27 mmol/L (22.0-30.0); Estimated Glomerular Filt Rate 19 ml/min (>60); GFR (African American) 23 ML/MIN (>60); Globulin 2.7 g/dL (1.3-3.2); Total Protein,Serum 5.7 g/dl (6.3-8.2)
[2021-11-04 14:03] LABS: Calcium 8.6 mg/dl (8.4-10.2); Glucose 91 mg/dl (74-100)
[2021-11-04 14:04] LABS: Hematocrit 29.6 % (37.0-47.0); Hemoglobin 9.4 g/dL (12.2-16.2); Mean Corpuscular HGB Conc 31.9 g/dL (31.8-35.4); Mean Corpuscular Hemoglobin 28.8 pg (27.0-31.2); Mean Corpuscular Volume 90.1 fl (81-99); Platelet Count 149 K/mm3 (142-424); Red Blood Count 3.28 M/mm3 (4.20-5.40); Red Cell Distribution Width 15.5 % (11.5-17.5)
[2021-11-04 14:25] LABS: Potassium 6.3 mmoL/L (3.5-5.1)
[2021-11-04 14:26] LABS: Blood Urea Nitrogen 91 mg/dl (7-17)
[2021-11-04 17:43] LABS: Prothrombin Time 12.3 seconds (10.1-12.5)
== END ==
PROVIDERS: Visit Provider Internal Medicine Adolescent Medicine
DX: R79.89 Other specified abnormal findings of blood chemistry; Z79.4 Long term (current) use of insulin; E11.40 Type 2 diabetes mellitus with diabetic neuropathy, unspecified; Z51.81 Encounter for therapeutic drug level monitoring
CPT/HCPCS: 36415; 80053; 85014; 85018; 85048; 85049; 85610; 87522

== ENCOUNTER → 2021-11-05 11:53 | Outpatient (REF) | payer MEDICARE, MEDICAID, SELFPAY ==
[2021-11-05 12:38] LABS: Basophils % 0.5 % (0.1-2.0); Eosinophils # 0.3 K/mm3 (0.0-0.4); Eosinophils % 5.2 % (0.1-12.0); Hematocrit 30.5 % (37.0-47.0); Hemoglobin 9.8 g/dL (12.2-16.2); Lymphocytes # 1.3 K/mm3 (0.7-4.5); Lymphocytes % 20.1 % (10-50); Mean Corpuscular HGB Conc 32.2 g/dL (31.8-35.4); Mean Corpuscular Hemoglobin 29.5 pg (27.0-31.2); Mean Corpuscular Volume 91.6 fl (81-99); Mean Platelet Volume 10.1 fl (7.4-10.4); Monocytes # 0.6 K/mm3 (0.1-1.0); Monocytes % 8.8 % (1.7-9.3); Neutrophils # 4.1 K/mm3 (1.8-7.8); Neutrophils % 65.4 % (37.0-80.0); Platelet Count 124 K/mm3 (142-424); Red Blood Count 3.34 M/mm3 (4.20-5.40); Red Cell Distribution Width 15.5 % (11.5-17.5); White Blood Count 6.3 K/mm3 (4.8-10.8)
[2021-11-05 14:04] LABS: Chloride 100 mmol/L (98-107); Sodium 131 mmol/L (136-145)
[2021-11-05 14:05] LABS: Potassium 5.6 mmoL/L (3.5-5.1)
[2021-11-05 14:08] LABS: Anion Gap 8.6 mEq/L (5-15); Calcium 8.5 mg/dl (8.4-10.2); Carbon Dioxide 28 mmol/L (22.0-30.0); Estimated Glomerular Filt Rate 26 ml/min (>60); GFR (African American) 32 ML/MIN (>60); Glucose 157 mg/dl (74-100)
[2021-11-05 14:40] LABS: Blood Urea Nitrogen 82 mg/dl (7-17)
== END ==
LOC: LAB.DROPOF 11:53
PROVIDERS: Visit Provider Internal Medicine Adolescent Medicine
DX: K74.69 Other cirrhosis of liver (principal)
CPT/HCPCS: 80048; 85025

== ENCOUNTER → 2021-11-11 07:07 | Outpatient (CLI) | payer MEDICARE, MEDICAID, SELFPAY ==
[2021-11-11 14:42] LABS: Basophils % 0.6 % (0.1-2.0); Eosinophils # 0.3 K/mm3 (0.0-0.4); Eosinophils % 4.8 % (0.1-12.0); Hemoglobin 9.6 g/dL (12.2-16.2); Lymphocytes # 1.2 K/mm3 (0.7-4.5); Lymphocytes % 22.2 % (10-50); Mean Corpuscular HGB Conc 32.1 g/dL (31.8-35.4); Mean Corpuscular Volume 90.3 fl (81-99); Monocytes # 0.5 K/mm3 (0.1-1.0); Monocytes % 8.7 % (1.7-9.3); Neutrophils # 3.5 K/mm3 (1.8-7.8); Neutrophils % 63.8 % (37.0-80.0); Platelet Count 114 K/mm3 (142-424); Red Blood Count 3.32 M/mm3 (4.20-5.40); Red Cell Distribution Width 15.6 % (11.5-17.5); White Blood Count 5.4 K/mm3 (4.8-10.8)
[2021-11-11 14:58] LABS: Chloride 96 mmol/L (98-107); Potassium 4.3 mmoL/L (3.5-5.1); Sodium 132 mmol/L (136-145)
[2021-11-11 15:00] LABS: Blood Urea Nitrogen 50 mg/dl (7-17); Estimated Glomerular Filt Rate 38 ml/min (>60); GFR (African American) 46 ML/MIN (>60)
[2021-11-11 15:01] LABS: Alanine Aminotransferase 28 U/L (12-78); Albumin Level 2.9 g/dl (3.5-5.0); Alkaline Phosphatase 94 U/L (38-126); Anion Gap 7.3 mEq/L (5-15); Aspartate Amino Transferase 35 U/L (14-36); Bilirubin,Total 0.3 mg/dl (0.2-1.3); Calcium 9.7 mg/dl (8.4-10.2); Carbon Dioxide 33 mmol/L (22.0-30.0); Globulin 2.8 g/dL (1.3-3.2); Glucose 134 mg/dl (74-100); Total Protein,Serum 5.7 g/dl (6.3-8.2)
== END ==
PROVIDERS: Visit Provider Internal Medicine Adolescent Medicine
DX: E11.9 Type 2 diabetes mellitus without complications (principal); Z79.4 Long term (current) use of insulin
CPT/HCPCS: 36415; 80053; 85025

== ENCOUNTER → 2021-11-17 06:20 | Outpatient (CLI) | payer MEDICARE, MEDICAID, SELFPAY ==
[2021-11-17 08:18] LABS: Chloride 91 mmol/L (98-107); Potassium 3.6 mmoL/L (3.5-5.1); Sodium 131 mmol/L (136-145)
[2021-11-17 08:20] LABS: Blood Urea Nitrogen 42 mg/dl (7-17); Estimated Glomerular Filt Rate 41 ml/min (>60); GFR (African American) 50 ML/MIN (>60)
[2021-11-17 08:21] LABS: Anion Gap 4.6 mEq/L (5-15); Calcium 8.5 mg/dl (8.4-10.2); Carbon Dioxide 39 mmol/L (22.0-30.0); Glucose 170 mg/dl (74-100)
== END ==
PROVIDERS: Visit Provider Internal Medicine Adolescent Medicine
DX: E11.9 Type 2 diabetes mellitus without complications (principal); Z79.4 Long term (current) use of insulin
CPT/HCPCS: 36415; 80048

== ENCOUNTER → 2021-11-25 06:22 | Outpatient (CLI) | payer MEDICARE, MEDICAID, SELFPAY ==
[2021-11-25 14:34] LABS: Chloride 93 mmol/L (98-107); Sodium 133 mmol/L (136-145)
[2021-11-25 14:35] LABS: Potassium 3.7 mmoL/L (3.5-5.1)
[2021-11-25 14:37] LABS: Blood Urea Nitrogen 39 mg/dl (7-17); Estimated Glomerular Filt Rate 55 ml/min (>60); GFR (African American) 67 ML/MIN (>60)
[2021-11-25 14:38] LABS: Anion Gap 6.7 mEq/L (5-15); Calcium 8.2 mg/dl (8.4-10.2); Carbon Dioxide 37 mmol/L (22.0-30.0); Glucose 169 mg/dl (74-100)
== END ==
PROVIDERS: Visit Provider Internal Medicine Adolescent Medicine
DX: E11.9 Type 2 diabetes mellitus without complications (principal); Z79.4 Long term (current) use of insulin
CPT/HCPCS: 36415; 80048